=== PATIENT | male | born 1945 | race Caucasian/White ===

== ENCOUNTER 2019-10-16 08:36 | Emergency (ER) | payer OTHER ==
--- OUTSIDE RECORDS SUMMARY | 2019-10-16 08:37 | XMS REPORT ---
:1945 Author Organization eClinicalWorks Care Team Providers Name Role Phone Aceves, Na Provider Role Unavailable Allergies, Adverse Reactions, Alerts Substance Reaction Event Type Iodine Info Not Available Drug Allergy Problems Problem Type Condition Code Onset Dates Condition Status Assessment Screening PSA (prostate specific Z12.5 Active antigen) Assessment Diverticulosis K57.90 Active Assessment Benign hypertrophy of prostate N40.0 Active Assessment History of colon polyps Z86.010 Active Problem Benign hypertrophy of prostate N40.0 Active Assessment Hypertension I10 Active Problem Diverticulosis of colon K57.30 Active Assessment Acute right-sided low back pain M54.5 Active without sciatica Problem Other chronic pain G89.29 Active Problem Lateral epicondylitis, right elbow M77.11 Active Problem Diverticulosis of large intestine K57.30 Active without hemorrhage Problem Benign prostatic hyperplasia with N40.1 Active lower urinary tract symptoms Problem Impingement syndrome of right M75.41 Active shoulder Problem Pneumococcal vaccine administered Z23 Active Problem Diverticulosis K57.90 Active Assessment Adult general medical exam Z00.00 Active Problem Carpal tunnel syndrome of right G56.01 Active wrist Problem Acute pain of right shoulder M25.511 Active Problem Right wrist pain M25.531 Active Problem Right elbow pain M25.521 Active Problem Adult general medical exam Z00.00 Active Problem Hypertension I10 Active Problem 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 Problem Hemorrhoids without complication K64.9 Active Problem GERD (gastroesophageal reflux K21.9 Active disease) Problem Allergic rhinitis, seasonal J30.2 Active Problem History of colon polyps Z86.010 Active Problem Bradycardia R00.1 Active Medications Medication Code Code Instructions Start End Status Dosage System Date Date Metoprolol NDC 01815816139 25 MG Orally Active 1 tablet Tartrate Twice a day with food Tamsulosin HCl NDC 47839857628 0.4 MG Orally Nov 15, Fe 13, Active 1 capsule Once a day 2018 2019 Tamsulosin HCl NDC 16150558087 0.4 MG Orally Active 1 capsule Once a day Metoprolol [facility] 75686130685 25 MG Orally Active 1 tablet Succinate ER Once a day Results Name Result Date Reference Range Unit Abnormality Flag Lipid Panel w/ Chol/HDL Ratio ----T. Chol/HDL Ratio 3.0 61543560 0.0-5.0 ratio ----LDL Cholesterol Calc 128 51332978 0-99 mg/dL H ----Cholesterol, Total 220 87328073 100-199 mg/dL H ----Triglycerides 91 92362758 0-149 mg/dL ----HDL Cholesterol 74 14151469 >39 mg/dL ----VLDL Cholesterol Jayjay 18 31598517 5-40 mg/dL Uric Acid, Serum ----Uric Acid 4.2 42389197 3.7-8.6 mg/dL Summary Purpose eClinicalWorks Submission
--- OUTSIDE RECORDS SUMMARY | 2019-10-16 08:37 | XMS REPORT ---
:1945 Author Organization eClinicalWorks Care Team Providers Name Role Phone [place]ene[place]ie[place] Provider Role Unavailable Allergies No Known Allergies Problems Problem Type Condition Code Onset Dates Condition Status Problem Diverticulosis of colon K57.30 Active Problem Diverticulosis of large intestine K57.30 Active without hemorrhage Problem Other chronic pain G89.29 Active Problem Impingement syndrome of right M75.41 Active shoulder Problem Right elbow pain M25.521 Active Problem Benign prostatic hyperplasia with N40.1 Active lower urinary tract symptoms Problem Carpal tunnel syndrome of right G56.01 Active wrist Problem Lateral epicondylitis, right elbow M77.11 Active Problem Right wrist pain M25.531 Active Problem Acute pain of right shoulder M25.511 Active Problem Hemorrhoids without complication K64.9 Active Problem Adult general medical exam Z00.00 Active Problem Pneumococcal vaccine administered Z23 Active Problem 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
--- OUTSIDE RECORDS SUMMARY | 2019-10-16 08:37 | XMS REPORT ---
:1945 Author Organization eClinicalWorks Care Team Providers Name Role Phone Aceves, Macie Provider Role Unavailable Allergies No Known Allergies Problems Problem Type Condition Code Onset Dates Condition Status Problem Other chronic pain G89.29 Active Problem Lateral epicondylitis, right elbow M77.11 Active Problem Diverticulosis of large intestine K57.30 Active without hemorrhage Problem Benign prostatic hyperplasia with N40.1 Active lower urinary tract symptoms Problem Pneumococcal vaccine administered Z23 Active Problem Impingement syndrome of right M75.41 Active shoulder Problem Diverticulosis K57.90 Active Problem Carpal tunnel syndrome of right [...] Problem Benign hypertrophy of prostate N40.0 Active Problem Bradycardia R00.1 Active Problem Diverticulosis of colon K57.30 Active Medications No Known Medications Results No Known Results Summary Purpose eClinicalWorks Submission
--- OUTSIDE RECORDS SUMMARY | 2019-10-16 08:37 | XMS REPORT ---
:1945 Author Organization eClinicalWorks Care Team Providers Name Role Phone Aceves, Na Provider Role Unavailable Allergies No Known Allergies Problems Problem Type Condition Code Onset Dates Condition Status Problem Diverticulosis of colon K57.30 Active Problem Diverticulosis of large intestine K57.30 Active without hemorrhage Problem Other chronic pain G89.29 Active Problem Impingement syndrome of right M75.41 Active shoulder Problem Right elbow pain M25.521 Active Assessment Hypertension I10 Active Assessment Acute right-sided low back pain M54.5 Active without sciatica Problem Benign prostatic hyperplasia with N40.1 Active [...] Benign hypertrophy of prostate N40.0 Active Medications No Known Medications Results No Known Results Summary Purpose eClinicalWorks Submission
--- OUTSIDE RECORDS SUMMARY | 2019-10-16 08:37 | XMS REPORT ---
:1945 [facility] Address [address] [place] [address] Care Team Providers Name Role Phone Unavailable Unavailable Unavailable Payers Payer Name Policy Type Policy Number Effective Date Expiration Date Problems This patient has no known problems. Allergies, Adverse Reactions, Alerts Allergy Name Allergy Status Severity Reaction(s) Onset Inactive Treating Comments Type Date Date Clinician Penicillins DA Active U 2017-02 00:00:0 0 Sulfa DA Active U 2017-02 (Sulfonamide -08 Antibiotics) 00:00:0 0 iodine DA Active U 2017-02 00:00:0 0 Medications This patient has no known medications. Results Test Description Test Time Test Comments Text Results Atomic Results Result Comments - NM MYOCRD SPECT R/S MULT 2019-10-13 16:25:00 Patient Name: ROSE MARIE IVEY Unit No: [id number] EXAMS: CPT CODE: [id number] NM MYOCRD SPECT R/S MULT [id number] INDICATION: Nonsustained ventricular tachycardia. The patient underwent myocardial perfusion imaging utilizing IV injection of 33 mCi Tc99M Cardiolite at rest and IV injection of 29.8 mCi Tc99M Cardiolite at peak stress. SPECT imaging was obtained at rest and stress. Gated SPECT imaging was obtained at stress. [place] treadmill protocol was utilized for stress. FINDINGS: There is a small mild partially reversible inferior posterior perfusion defect. There is notable some diaphragmatic uptake of technetium in the resting images which may decrease the specificity of this study. CONCLUSIONS: 1. PROBABLE NORMAL TECHNETIUM 99 CARDIOLITE SHOWING AN INFERIOR POSTERIOR ATTENUATION ARTIFACT. HOWEVER A SMALL MILD NONTRANSMURAL SCAR SMALL AMOUNT OF ISCHEMIA CANNOT BE ENTIRELY EXCLUDED. 2. GATED PERFUSION IMAGING SHOWS NORMAL LEFT VENTRICULAR SIZE AND SYSTOLIC FUNCTION WITH NORMAL WALL MOTION. END-DIASTOLIC VOLUME IS 103 ML, END-SYSTOLIC VOLUME IS 44 ML, AND THE EJECTION FRACTION IS 57 %. at 0521 Reported and signed by: Vinh Wick M.D. CC: Vinh Wcik Technologist: Felisha Paniagua, RT(NM); Rox Segura RT(N) Transcrpt Date/Tm/Trnsp: 10/13/2019 (5060) Jannie Orig Print D/T: S: 10/13/2019 ([id number]) [facility] NAME: ROSE MARIE IVEY [address] [place] [address] PHYS: [place] [address] : 1945 AGE: 74 SEX: M LOC: Z.ZNUC PHONE #: [phone] EXAM DATE: 10/03/2019 STATUS: CANDE GALLO FAX #: [phone] RADIOLOGY NO: PAGE 1 Signed Report
--- OUTSIDE RECORDS SUMMARY | 2019-10-16 08:37 | XMS REPORT ---
:1945 Author Organization eClinicalWorks Care Team Providers Name Role Phone Aceves, Na Provider Role Unavailable Allergies, Adverse Reactions, Alerts Substance Reaction Event Type Iodine Info Not Available Drug Allergy Problems Problem Type Condition Code Onset Dates Condition Status Assessment Influenza vaccination administered Z23 Active at current visit Assessment Diverticulosis of large intestine K57.30 Active without hemorrhage Problem Allergic rhinitis, seasonal J30.2 Active Assessment Hypertension I10 Active Problem Benign hypertrophy of prostate N40.0 Active Assessment Benign hypertrophy of prostate N40.0 Active Problem Diverticulosis of colon K57.30 Active Problem Diverticulosis of large intestine K57.30 Active without hemorrhage Problem Other chronic pain G89.29 Active Problem Impingement syndrome of right M75.41 Active shoulder Problem Right elbow pain M25.521 Active Assessment Acute right-sided low back pain M54.5 Active without sciatica Problem Benign prostatic hyperplasia with N40.1 Active lower urinary tract symptoms Assessment Pain of left mastoid H92.02 Active Problem Carpal tunnel syndrome of right [...] Start End Status Dosage System Date Date Tizanidine HCl ND 89735538527 2 MG Orally Aug 02, Aug 17, Active 1 tablet twice a day 2018 2018 as needed for back pain Tamsulosin HCl NDC 67866340751 0.4 MG Orally Active 1 capsule Once a day Metoprolol ND 03339844284 25 MG Orally Active 1 tablet Succinate ER Once a day Results No Known Results Immunizations Vaccine Administration Date FluAD Aug 02, 2019 Summary Purpose eClinicalWorks Submission
[2019-10-16] MEDS ORDERED: MECLIZINE HCL 12.5 MG TAB ONE ×2 (09:20→11:15)
[2019-10-16] MEDS ORDERED: ONDANSETRON 4 MG/2 ML VIAL ONE (09:20)
--- NOTE | 2019-10-16 09:43 | RAD REPORT ---
EXAM DESCRIPTION: CT - Head Brain Wo Cont - 10/16/2019 9:27 am CLINICAL HISTORY: Dizziness COMPARISON: None. TECHNIQUE: Computed axial tomography of the head was obtained. IV contrast was not requested. All CT scans are performed using dose optimization technique as appropriate and may include automated exposure control or mA/KV adjustment according to patient size. FINDINGS: An intracranial bleed is not seen . The ventricles are normal in caliber. No extra-axial fluid collection is noted. Fluid within the sinuses/ mastoids is not seen. IMPRESSION: No acute intracranial abnormality is seen. If patient's symptoms persist MRI of the bra in would be recommended.
[2019-10-16 10:04] LABS: Absolute Lymphocytes (CBC) 0.6 K/uL (0.7-4.9); Basophils % 0.2 % (0-1.3); Hematocrit 43.4 % (39.6-49.0); Lymphocytes % 13.4 % (15.3-44.8); MPV 8.9 fL (7.6-11.3); RBC Red Blood Cell Count 4.85 M/uL (4.33-5.43)
[2019-10-16 10:31] LABS: ALT/SGPT 33 U/L (12-78); AST/SGOT 19 U/L (15-37); Albumin 3.8 g/dL (3.4-5.0); Alkaline Phosphatase 59 U/L (45-117); BUN Blood Urea Nitrogen 14 mg/dL (7-18); Bicarbonate 29 mmol/L (21-32); Bilirubin Direct 0.1 mg/dL (0-0.2); Bilirubin Total 0.6 mg/dL (0.2-1.0); Glucose Level 113 mg/dL (74-106); Magnesium 2.4 mg/dL (1.8-2.4); NT PRO-BNP 57 pg/mL (<125); Potassium 4.1 mmol/L (3.5-5.1); Sodium Level 142 mmol/L (136-145); Troponin (Emerg Dept Use Only) < 0.02 ng/mL (0.0-0.045)
--- NOTE | 2019-10-16 10:58 | RAD REPORT ---
EXAM DESCRIPTION: Tray Single View10/16/2019 9:47 am CLINICAL HISTORY: Dizziness/nausea COMPARISON: 2018 FINDINGS: The lungs appear clear of acute infiltrate. The heart is normal size Pacemaker leads are in place. IMPRESSION: No acute abnormalities displayed
--- NOTE | 2019-10-16 12:34 | ER ---
Nurse's Notes [facility] Name: Ta Roper Age: 74 yrs Sex: Male : 1945 Arrival Date: 10/16/2019 Time: 08:37 Bed 14 Private MD: Diagnosis: Benign paroxysmal vertigo Presentation: 10/16 08:47 Presenting complaint: Patient states: Dizziness since which has gotten ss worse over the past 24 hours. Pt reports he is now becoming nauseous with the episodes. Transition of care: patient was not received from another setting of care. Onset of symptoms was October 12, 2019. Risk Assessment: Do you want to hurt yourself or someone else? Patient reports no desire to harm self or others. Initial Sepsis Screen: Does the patient meet any 2 criteria? No. Patient's initial sepsis screen is negative. Does the patient have a suspected source of infection? No. Patient's initial sepsis screen is negative. Care prior to arrival: None. 08:47 Acuity: GRAHAM 3 ss 08:47 Method Of Arrival: Ambulatory ss Historical: - Allergies: 08:50 Sulfa (Sulfonamide Antibiotics); ss 08:50 PENICILLINS; ss - PMHx: 08:50 Kidney stones; ss - PSHx: 08:50 Hernia repair; Cholecystectomy; pacemaker (bradycardia); ss - Immunization history:: Adult Immunizations up to date. - Social history:: Smoking status: Patient/guardian denies using tobacco. - Ebola Screening: : Patient denies exposure to infectious person Patient denies travel to an Ebola-affected area in the 21 days before illness onset. Screenin:28 Abuse screen: Denies threats or abuse. Nutritional screening: No deficits noted. ae4 Tuberculosis screening: No symptoms or risk factors identified. Fall Risk None identified. Assessment: 09:27 General: Appears in no apparent distress. uncomfortable, Behavior is calm, cooperative. ae4 Pain: Denies pain. Neuro: Level of Consciousness is awake, alert, obeys commands, Oriented to person, place, time, situation. Neuro: Reports dizziness. Cardiovascular: Patient's skin is warm and dry. Respiratory: Airway is patent Respiratory effort is even, unlabored, Respiratory pattern is regular, symmetrical. GI: Abdomen is round non-distended, Abd is soft and non tender X 4 quads. GI: Reports nausea, Patient currently denies vomiting. : No signs and/or symptoms were reported regarding the genitourinary system. EENT: No signs and/or symptoms were reported regarding the EENT system. Derm: Skin is normal. Musculoskeletal: No signs and/or symptoms reported regarding the musculoskeletal system. 09:33 Reassessment: Radiology Technicians at bedside obtaining chest x-ray. ae4 09:43 Reassessment: Radiology at bedside obtaining 2nd x-ray. ae4 11:16 Neuro: Reports dizziness, Patient states the dizziness still remains but has improved. ae4 12:28 Reassessment: Patient appears in no apparent distress at this time. Patient reports a ae4 "slight dizziness". Patient was able to ambulate to the restroom without assistance and a steady gait. Patient states feeling better. Patient states symptoms have improved. Vital Signs: 08:47 BP 122 / 67; Pulse 66; Resp 16; Temp 97.7(TE); Pulse Ox 98% on R/A; Weight 84.37 kg; ss Height 6 ft. 0 in. (182.88 cm); Pain 0/10; 11:10 BP 119 / 89; Pulse 52; Resp 22; Temp 97.9; Pulse Ox 100% on R/A; mh5 12:25 BP 118 / 68; Pulse 62; Resp 18; Temp 97.6(O); Pulse Ox 99% on R/A; mh5 08:47 Body Mass Index 25.23 (84.37 kg, 182.88 cm) ED Course: 08:37 Patient arrived in ED. as 08:39 Jm Yoder NP is PHCP. pm1 08:39 Rei Moreno MD is Attending Physician. pm1 08:47 Arm band placed on right wrist. ss 08:49 Triage completed. ss 09:00 Inserted saline lock: 20 gauge in right antecubital area, using aseptic technique. ae4 Blood collected. 09:11 Onesimo Bolden, ALVARO is Primary Nurse. ae4 09:27 CT completed. Patient tolerated procedure well. Patient moved back from CT. bq 09:28 CT Head Brain wo Cont In Process Unspecified. EDMS 09:28 Bed in low position. Call light in reach. Side rails up X 1. Adult w/ patient. Cardiac ae4 monitor on. Pulse ox on. NIBP on. 09:33 Patient moved back from CT. ae4 09:45 XRAY Chest (1 view) In Process Unspecified. EDMS 13:15 No provider procedures requiring assistance completed. IV discontinued, intact, ae4 bleeding controlled, No redness/swelling at site. Pressure dressing applied. Administered Medications: 09:20 Drug: Meclizine 25 mg Route: PO; ae4 12:30 Follow up: Response: Dizziness decreased, patient reports dizziness still remains. ae4 09:50 Drug: Zofran 4 mg Route: IVP; Site: right antecubital; ae4 10:30 Follow up: Response: Nausea is decreased ae4 11:16 Drug: Meclizine 25 mg Route: PO; ae4 12:29 Follow up: Response: Dizziness decreased. ae4 Outcome: 12:33 Discharge ordered by . pm1 13:14 Patient left the ED. ae4 13:15 Discharged to home ambulatory, with family, with improved , steady gait. ae4 13:15 Condition: stable 13:15 Discharge instructions given to patient, Instructed on discharge instructions, follow up and referral plans. Demonstrated understanding of instructions, Prescriptions given X 1. Signatures: Dispatcher [employer] EDMS Bobbi Cuadra Amelia as Smirch, Shelby, RN RN ss Jm Yoder NP TANKAGE SUPERVISOR pm1 Molly Esc[place] 5 Onesimo Bolden RN RN ae4 Corrections: (The following items were deleted from the chart) 12:24 12:23 BP 93 / 65; Pulse 65bpm; Resp 18bpm; Pulse Ox 98% RA; Temp 97.6F; mh5 5
--- NOTE | 2019-10-16 12:34 | EDPHYS ---
Physician Documentation [facility] Name: Ta Roper Age: 74 yrs Sex: Male : 1945 Arrival Date: 10/16/2019 Time: 08:37 Bed 14 Private MD: YOSSI Physician Rei Moreno HPI: 10/16 09:16 This 74 yrs old Male presents to ER via Ambulatory with complaints of pm1 Vertigo, Nausea. 09:16 The patient presents with sense of spinning, vertigo. Onset: The symptoms/episode pm1 began/occurred 1 week(s) ago. Context: occurred while the patient was changing position and moving head. Modifying factors: The symptoms are alleviated by holding head still, the symptoms are aggravated by movement of head, standing up, changing position. Associated signs and symptoms: Pertinent positives: nausea, Pertinent negatives: chest pain, numbness, shortness of breath, tingling, vomiting. Severity of symptoms: in the emergency department the symptoms are worse Pain is currently a 0 / 10. The patient has not experienced similar symptoms in the past. Historical: - Allergies: 08:50 Sulfa (Sulfonamide Antibiotics); ss 08:50 PENICILLINS; ss - PMHx: 08:50 Kidney stones; ss - PSHx: 08:50 Hernia repair; Cholecystectomy; pacemaker (bradycardia); ss - Immunization history:: Adult Immunizations up to date. - Social history:: Smoking status: Patient/guardian denies using tobacco. - Ebola Screening: : Patient denies exposure to infectious person Patient denies travel to an Ebola-affected area in the 21 days before illness onset. ROS: 09:16 Constitutional: Negative for fever, chills, and weight loss, Eyes: Negative for injury, pm1 pain, redness, and discharge, ENT: Negative for injury, pain, and discharge, Neck: Negative for injury, pain, and swelling, Cardiovascular: Negative for chest pain, palpitations, and edema, Respiratory: Negative for shortness of breath, cough, wheezing, and pleuritic chest pain, Back: Negative for injury and pain, : Negative for injury, bleeding, discharge, and swelling, MS/Extremity: Negative for injury and deformity, Skin: Negative for injury, rash, and discoloration. 09:16 Abdomen/GI: Positive for nausea, Negative for vomiting, diarrhea, constipation. 09:16 Neuro: Positive for dizziness, Negative for headache, numbness, visual changes, weakness. Exam: 09:16 Constitutional: This is a well developed, well nourished patient who is awake, alert, pm1 and in no acute distress. Head/Face: Normocephalic, atraumatic. Eyes: Pupils equal round and reactive to light, extra-ocular motions intact. Lids and lashes normal. Conjunctiva and sclera are non-icteric and not injected. Cornea within normal limits. Periorbital areas with no swelling, redness, or edema. ENT: Nares patent. No nasal discharge, no septal abnormalities noted. Tympanic membranes are normal and external auditory canals are clear. Oropharynx with no redness, swelling, or masses, exudates, or evidence of obstruction, uvula midline. Mucous membranes moist. Neck: Trachea midline, no thyromegaly or masses palpated, and no cervical lymphadenopathy. Supple, full range of motion without nuchal rigidity, or vertebral point tenderness. No Meningismus. Chest/axilla: Normal chest wall appearance and motion. Nontender with no deformity. No lesions are appreciated. Cardiovascular: Regular rate and rhythm with a normal S1 and S2. No gallops, murmurs, or rubs. Normal PMI, no JVD. No pulse deficits. Respiratory: Lungs have equal breath sounds bilaterally, clear to auscultation and percussion. No rales, rhonchi or wheezes noted. No increased work of breathing, no retractions or nasal flaring. Abdomen/GI: Soft, non-tender, with normal bowel sounds. No distension or tympany. No guarding or rebound. No evidence of tenderness throughout. Back: No spinal tenderness. No costovertebral tenderness. Full range of motion. Skin: Warm, dry with normal turgor. Normal color with no rashes, no lesions, and no evidence of cellulitis. MS/ Extremity: Pulses equal, no cyanosis. Neurovascular intact. Full, normal range of motion. 09:16 Neuro: Orientation: is normal, Mentation: is normal, Cranial nerves: CN II- XII are normal as tested, horizontal nystagmus to left side. Motor: is normal, moves all fours, Sensation: is normal, no obvious gross deficits. Vital Signs: 08:47 BP 122 / 67; Pulse 66; Resp 16; Temp 97.7(TE); Pulse Ox 98% on R/A; Weight 84.37 kg; ss Height 6 ft. 0 in. (182.88 cm); Pain 0/10; 11:10 BP 119 / 89; Pulse 52; Resp 22; Temp 97.9; Pulse Ox 100% on R/A; mh5 12:25 BP 118 / 68; Pulse 62; Resp 18; Temp 97.6(O); Pulse Ox 99% on R/A; mh5 08:47 Body Mass Index 25.23 (84.37 kg, 182.88 cm) ss MDM: 08:41 Patient medically screened. ale 11:00 ED course: Patient reports improvement in vertigo with meclizine 25 mg. Will give pm1 another 25 mg to see if it will result in resolution. 12:33 Data reviewed: vital signs. Data interpreted: Pulse oximetry: on room air is 99 %. pm1 Interpretation: normal. Counseling: I had a detailed discussion with the patient and/or guardian regarding: the historical points, exam findings, and any diagnostic results supporting the discharge/admit diagnosis, lab results, radiology results, the need for outpatient follow up, a neurologist, to return to the emergency department if symptoms worsen or persist or if there are any questions or concerns that arise at home. 12:33 ED course: Patient able to walk without assistance and symptoms improved with 50 mg pm1 total of meclizine. therefore will discharge patient home with meclizine and follow up with neurology/PCP. 10/16 09:12 Order name: NT PRO-BNP; Complete Time: 10:35 pm1 10/16 09:12 Order name: Basic Metabolic Panel; Complete Time: 10:35 pm1 10/16 09:12 Order name: CBC with Diff; Complete Time: 10:35 pm1 10/16 09:12 Order name: LFT's; Complete Time: 10:35 pm1 10/16 09:12 Order name: Magnesium; Complete Time: 10:35 pm1 10/16 09:12 Order name: PT-INR; Complete Time: 10:35 pm1 10/16 09:12 Order name: Troponin (emerg Dept Use Only); Complete Time: 10:35 pm1 10/16 09:12 Order name: XRAY Chest (1 view); Complete Time: 10:59 pm1 12/29 09:12 Order name: EKG; Complete Time: 09:13 pm1 10/16 09:12 Order name: Cardiac monitoring; Complete Time: 09:55 pm1 10/16 09:12 Order name: CT Head Brain wo Cont; Complete Time: 10:35 pm1 10/16 09:12 Order name: EKG - Nurse/Tech; Complete Time: 09:55 pm1 10/16 09:12 Order name: IV Saline Lock; Complete Time: 09:56 pm1 10/16 09:12 Order name: Labs collected and sent; Complete Time: 09:56 pm1 10/16 09:12 Order name: O2 Per Protocol; Complete Time: 09:16 pm1 10/16 09:12 Order name: O2 Sat Monitoring; Complete Time: 09:15 pm1 Administered Medications: 09:20 Drug: Meclizine 25 mg Route: PO; ae4 12:30 Follow up: Response: Dizziness decreased, patient reports dizziness still remains. ae4 09:50 Drug: Zofran 4 mg Route: IVP; Site: right antecubital; ae4 10:30 Follow up: Response: Nausea is decreased ae4 11:16 Drug: Meclizine 25 mg Route: PO; ae4 12:29 Follow up: Response: Dizziness decreased. ae4 Disposition: 10/16/19 12:33 Discharged to Home. Impression: Benign paroxysmal vertigo. - Condition is Stable. - Discharge Instructions: Benign Positional Vertigo. - Prescriptions for Meclizine 25 mg Oral Tablet - take 1 tablet by ORAL route every 8 hours As needed; 30 tablet. Zofran ODT 4 mg Oral tablet,disintegrating - place 1 tablet by TRANSLINGUAL route every 8 hours As needed; 20 tablet. - Medication Reconciliation Form, Thank You Letter, Antibiotic Education, Prescription Opioid Use form. - Follow up: Emergency Department; When: As needed; Reason: Worsening of condition. Follow up: Private Physician; When: 2 - 3 days; Reason: Recheck today's complaints, Continuance of care, Re-evaluation by your physician. - Problem is new. - Symptoms have improved. Addendum: 10/24/2019 08:35 Co-signature as Attending Physician, Rei Moreno MD I agree with the assessment and c juarez plan of care. Signatures: Dispatcher [employer] Rei Slaughter MD MD cha Smirch, Shelby, RN RN Jm Forrester NP NUMERICAL CONTROL OPERATOR pm1 Onesimo Bolden, RN RN ae4 Corrections: (The following items were deleted from the chart) 10/16 13:14 12:33 10/16/2019 12:33 Discharged to Home. Impression: Benign paroxysmal vertigo. ae4 Condition is Stable. Forms are Medication Reconciliation Form, Thank You Letter, Antibiotic Education, Prescription Opioid Use. Follow up: Emergency Department; When: As needed; Reason: Worsening of condition. Follow up: Private Physician; When: 2 - 3 days; Reason: Recheck today's complaints, Continuance of care, Re-evaluation by your physician. Problem is new. Symptoms have improved. pm1
[2019-10-16 13:22] VITALS: BP 118/68; TEMP 97.6; O2SAT 99
--- NOTE | 2019-10-17 10:20 | EKG ---
Test Date: 2019-10-16 Test Time: 09:37:30 Corporate Lawyer: TRISTIAN MEASUREMENT RESULTS: Intervals: Rate: 62 ID: [id number] QRSD: 96 QT: 420 QTc: 426 Wray: P: ID: [id number] QRS: 1 T: 20 INTERPRETIVE STATEMENTS: Atrial-paced rhythm with prolonged AV conduction Incomplete right bundle branch block Abnormal ECG Compared to ECG 08/20/2016 13:05:39 Incomplete right bundle-branch block now present Electronically Signed On 10-17-19 10:18:49 STEM TEACHER by Yuan Moore
== END 2019-10-16 13:14 | disposition home or self-care (01) ==
LOC: ER 08:36
DX: H81.10 Benign paroxysmal vertigo, unspecified ear (principal); Z95.0 Presence of cardiac pacemaker; Z88.0 Allergy status to penicillin; Z88.2 Allergy status to sulfonamides; Z87.442 Personal history of urinary calculi
CPT/HCPCS: 93005; 85025; 80048; 36415; 83735; 85610; 80076; 84484; 83880; 70450; 71045; 96374; 99285; J2405; J8597

== ENCOUNTER 2020-01-21 06:30 | Emergency (ER) | payer OTHER ==
--- OUTSIDE RECORDS SUMMARY | 2020-01-21 06:32 | XMS REPORT ---
[...] Status Dosage System Date Date Metoprolol NDC 64977894122 25 MG Orally Active 1 tablet Tartrate Twice a day with food Tamsulosin HCl NDC 03504722656 0.4 MG Orally Nov 15, Fe 13, Active 1 capsule Once a day 2018 2019 Tamsulosin HCl NDC 78757261963 0.4 MG Orally Active 1 capsule Once a day Metoprolol [facility] 91951145910 25 MG Orally Active 1 tablet Succinate ER Once a day Results Name Result Date Reference Range Unit Abnormality Flag Lipid Panel w/ Chol/HDL Ratio ----T. Chol/HDL Ratio 3.0 [id number] 0.0-5.0 ratio ----LDL Cholesterol Calc 128 14309367 0-99 mg/dL H ----Cholesterol, Total 220 42615227 100-199 mg/dL H ----Triglycerides 91 02653289 0-149 mg/dL ----HDL Cholesterol 74 30258501 >39 mg/dL ----VLDL Cholesterol Jayjay 18 28091129 5-40 mg/dL Uric Acid, Serum ----Uric Acid 4.2 63160751 3.7-8.6 mg/dL Summary Purpose eClinicalWorks Submission
--- OUTSIDE RECORDS SUMMARY | 2020-01-21 06:32 | XMS REPORT ---
[...] Dosage System Date Date Tizanidine HCl ND 36645318125 2 MG Orally Aug 02, Aug 17, Active 1 tablet twice a day 2018 2018 as needed for back pain Tamsulosin HCl NDC 04000946265 0.4 MG Orally Active 1 capsule Once a day Metoprolol ND 76704293032 25 MG Orally Active 1 tablet Succinate ER Once a day Results No Known Results Immunizations Vaccine Administration Date FluAD Aug 02, 2019 Summary Purpose eClinicalWorks Submission
--- OUTSIDE RECORDS SUMMARY | 2020-01-21 06:32 | XMS REPORT ---
:1945 Author Organization eClinicalWorks Care Team Providers Name Role Phone [place]ie[place] Provider Role Unavailable Allergies No Known Allergies [...] Status Dosage System Date Date Tamsulosin HCl [facility] 65096923102 0.4 MG Orally Sep 02, Dec 01, Active 1 capsule Once a day 2018 2019 Results No Known Results Summary Purpose eClinicalWorks Submission
--- OUTSIDE RECORDS SUMMARY | 2020-01-21 06:32 | XMS REPORT ---
:1945 [facility] Address [address] [place] [address] Care Team Providers Name Role Phone Unavailable [...] Patient Name: ROSE MARIE IVEY Unit No: [id number] EXAMS: CPT CODE: [id number] NM MYOCRD SPECT R/S MULT [id number] INDICATION: Nonsustained ventricular tachycardia. The patient underwent [...] THE EJECTION FRACTION IS 57 %. at 6150 Reported and signed by: Vinh Wikc M.D. CC: Vinh Wick Technologist: Felisha Paniagua, RT(NM); Rox Segura RT(N) Transcrpt Date/Tm/Trnsp: 10/13/2019 (5557) Jannie Orig Print D/T: S: 10/13/2019 ([id number]) [facility] NAME: ROSE MARIE IVEY [address] [place] [address] PHYS: [place] [address] : 1945 AGE: 74 SEX: M LOC: Z.ZNUC PHONE #: [phone] EXAM DATE: 10/03/2019 STATUS: CANDE GALLO FAX #: [phone] RADIOLOGY NO: PAGE 1 Signed Report
--- OUTSIDE RECORDS SUMMARY | 2020-01-21 06:32 | XMS REPORT ---
:1945 Author Organization eClinicalWorks Care Team Providers Name Role Phone Aceves, Na Provider Role Unavailable Allergies, Adverse Reactions, Alerts Substance Reaction Event Type Iodine Info Not Available Drug Allergy Problems Problem Type Condition Code Onset Dates Condition Status Assessment Generalized abdominal pain R10.84 Active Assessment GERD with esophagitis K21.0 Active Problem Diverticulosis of colon K57.30 Active Assessment Cervicalgia M54.2 Active Problem Other chronic pain G89.29 Active Assessment Vertigo R42 Active Problem Diverticulosis of large intestine K57.30 Active without hemorrhage Problem Carpal tunnel syndrome of right G56.01 Active wrist Problem Lateral epicondylitis, right elbow M77.11 Active Problem Diverticulosis K57.90 Active Problem Benign prostatic hyperplasia with N40.1 Active lower urinary tract symptoms Problem 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 Problem Pneumococcal vaccine administered Z23 Active Problem GERD with esophagitis K21.0 Active Problem Right wrist pain M25.531 Active Problem Acute pain of right shoulder M25.511 Active Problem Impingement syndrome of right M75.41 Active shoulder Problem Right elbow pain M25.521 Active Problem Hypertension I10 Active Problem History of colon polyps Z86.010 Active Problem Hemorrhoids without complication K64.9 Active Problem Adult general medical exam Z00.00 Active Problem Allergic rhinitis, seasonal J30.2 Active Problem Benign hypertrophy of prostate N40.0 Active Problem Bradycardia R00.1 Active Problem GERD (gastroesophageal reflux K21.9 Active disease) Medications Medication Code Code Instructions Start End Status Dosage System Date Date Metoprolol ND 50089206331 25 MG Orally Active 1 tablet Tartrate Twice a day with food Tamsulosin HCl ND 25964584929 0.4 MG Orally Sep 02, Dec 01, Active 1 capsule Once a day 2018 2019 Metoprolol NDC 25775648871 25 MG Orally Active 1 tablet Succinate ER Once a day Omeprazole ND 13829442684 40 MG Orally Nov 01, Active 1 capsule Once a day 2019 Tamsulosin HCl ND 20970282343 0.4 MG Orally Active 1 capsule Once a day Tizanidine HCl [facility] 40272144036 2 MG Nov 01, Dec 01, Active 1 2019 EVERY 12 HOURS PRN PAIN MUSCLE SPASM Results No Known Results Summary Purpose eClinicalWorks Submission
--- OUTSIDE RECORDS SUMMARY | 2020-01-21 06:33 | XMS REPORT ---
:1945 [facility] Team Providers Name Role Phone Susannah Oh Provider Role Unavailable Allergies, Adverse Reactions, Alerts Substance Reaction Event Type Iodine Info Not Available Drug Allergy Problems Problem Type Condition Code Onset Dates Condition Status Assessment History of kidney stones Z87.442 Active Assessment Benign prostatic hyperplasia with N40.1 Active lower urinary tract symptoms Assessment Nocturia R35.1 Active Problem Diverticulosis of colon K57.30 Active Assessment Frequent urination R35.0 Active Problem Other chronic pain G89.29 Active Assessment Kidney pain N23 Active Problem Diverticulosis of large intestine K57.30 [...] Start End Status Dosage System Date Date Omeprazole ND 18952419090 40 MG Orally Nov 01, Active 1 capsule Once a day 2019 Tizanidine HCl ND 48025116193 2 MG Nov 01, Dec 01, Active 1 TAB 2019 2020 EVERY 12 HOURS PRN PAIN MUSCLE SPASM Tamsulosin HCl ND 26590139113 0.4 MG Orally Sep 02Dec 01, Active 1 capsule Once a day 2018 2019 Metoprolol ND 20536471138 25 MG Orally Active 1 tablet Tartrate Twice a day with food Tamsulosin HCl [facility] 83686199201 0.4 MG Orally Active 1 capsule Once a day Metoprolol [facility] 54474202657 25 MG Orally Active 1 tablet Succinate ER Once a day Results No Known Results Summary Purpose eClinicalWorks Submission
[2020-01-21] MEDS ORDERED: ONDANSETRON 4 MG/2 ML VIAL ONE ×2 (06:57→08:03)
[2020-01-21] MEDS ORDERED: KETOROLAC 30 MG/ML INJ ONE (06:57)
[2020-01-21] MEDS ORDERED: MORPHINE 4 MG/ML SYR ONE (06:57)
[2020-01-21] MEDS ORDERED: NA CHLORIDE 0.9% 1,000 ML ONE ×2 (06:57→08:03)
[2020-01-21 07:04] LABS: Absolute Lymphocytes (CBC) 1.8 K/uL (0.7-4.9); Basophils % 0.2 % (0-1.3); Hematocrit 43.9 % (39.6-49.0); Lymphocytes % 39.2 % (15.3-44.8); MPV 8.6 fL (7.6-11.3); RBC Red Blood Cell Count 4.88 M/uL (4.33-5.43)
[2020-01-21] MEDS ORDERED: CEFTRIAXONE/SWI 1gm 1 GM/10 ML SYR ONE (07:24)
[2020-01-21 07:27] LABS: Albumin 3.8 g/dL (3.4-5.0); Bilirubin Direct 0.1 mg/dL (0-0.2); Bilirubin Total 0.6 mg/dL (0.2-1.0); Potassium 3.6 mmol/L (3.5-5.1)
--- NOTE | 2020-01-21 07:44 | RAD REPORT ---
EXAM DESCRIPTION: CT - Stone Protocol - 01/21/2020 7:28 am CLINICAL HISTORY: Abdominal pain. COMPARISON: 2015 TECHNIQUE: Computed axial tomography of the abdomen pelvis was obtained without oral or IV contrast. Lack of IV and oral contrast limits evaluation of solid organs, bowel, and vessels. Coronal reformat emma images were obtained and reviewed. All CT scans are performed using dose optimization technique as appropriate and may include automated exposure control or mA/KV adjustment according to patient size. FINDINGS: A renal calculus is not seen. Mild right hydronephrosis. 2 millimeter calculus right UVJ. Small left renal cysts. Cholecystectomy The liver, spleen, pancreas and adrenals appear grossly normal There is no evidence of diverticulitis. The appendix appears normal. Small inguinal hernias contain f at IMPRESSION: A 2 millimeter calculus right UVJ resulting in mild right hydronephrosis
--- NOTE | 2020-01-21 07:49 | ER ---
Nurse's Notes [facility] Name: Ta Roper Age: 74 yrs Sex: Male : 1945 Arrival Date: 01/21/2020 Time: 06:31 Bed 20 Private MD: Diagnosis: Hydronephrosis with renal and ureteral calculous obstruction-2 mm UVJ Presentation: 01/20 06:33 Chief complaint: Patient states: I am having right sided kidney pain that radiates to jb4 the right of my stomach. It feels like a kidney stone. 06:33 Coronavirus screen: Patient denies fever greater than 100.4F, cough, shortness of jb4 breath, or difficulty breathing. Proceed with normal triage process. Ebola Screen: No symptoms or risks identified at this time. Initial Sepsis Screen: Does the patient meet any 2 criteria? No. Patient's initial sepsis screen is negative. Does the patient have a suspected source of infection? No. Patient's initial sepsis screen is negative. Risk Assessment: Do you want to hurt yourself or someone else? Patient reports no desire to harm self or others. Transition of care: patient was not received from another setting of care. 06:33 Method Of Arrival: Ambulatory jb4 06:33 Acuity: GRAHAM 3 jb4 Historical: - Allergies: 06:33 PENICILLINS; jb4 06:33 Sulfa (Sulfonamide Antibiotics); jb4 - Home Meds: 06:33 metoprolol succinate 25 mg oral Tb24 1 tab once daily [Active]; jb4 - PMHx: 06:33 Kidney stones; jb4 - PSHx: 06:33 Cholecystectomy; jb4 - Immunization history:: Adult Immunizations up to date. - Social history:: Smoking status: Patient denies any tobacco usage or history of. Patient uses alcohol, occasionally. Patient/guardian denies using street drugs. - Family history:: not pertinent. Screenin:33 Abuse screen: Denies threats or abuse. Nutritional screening: No deficits noted. jb4 Tuberculosis screening: No symptoms or risk factors identified. Fall Risk None identified. Assessment: 06:33 General: Appears in no apparent distress. uncomfortable, Behavior is calm, cooperative, jb4 appropriate for age. Pain: Complains of pain in right low back Pain radiates to right lower quadrant and groin Pain currently is 9 out of 10 on a pain scale. Quality of pain is described as shooting, Is continuous. Neuro: Level of Consciousness is awake, alert, obeys commands, Oriented to person, place, time, situation. Cardiovascular: Patient's skin is warm and dry. Respiratory: Airway is patent Respiratory effort is even, unlabored, Respiratory pattern is regular, symmetrical. GI: No signs and/or symptoms were reported involving the gastrointestinal system. : No signs and/or symptoms were reported regarding the genitourinary system. EENT: No signs and/or symptoms were reported regarding the EENT system. Derm: Skin is intact, Skin is pink, warm \T\ dry. Musculoskeletal: Circulation, motion, and sensation intact. Range of motion: intact in all extremities. 07:22 Reassessment: Patient appears in no apparent distress at this time. pt wheeled to [place] em via stretcher. 07:45 Reassessment: Patient appears in no apparent distress at this time. reports pain is em 4/10, also reports nausea, Dr. Moreno notified. 08:13 Reassessment: pt will be discharged after completion of NS bolus. em 08:40 Reassessment: reports pain shot up to 8/10, currently rates pain 4/10, pt states he is em shaking because he is in pain, repeat 0.5 mg Dilaudid given. 09:04 Reassessment: Patient appears in no apparent distress at this time. Patient and/or em family updated on plan of care and expected duration. Pain level reassessed. Patient is alert, oriented x 3, equal unlabored respirations, skin warm/dry/pink. rates pain 3/10, has notified grandson to come get him after his fluids are finished Patient states feeling better. Patient states symptoms have improved. 10:25 Reassessment: pt vomited as being wheeled out of room, XAVIER Angulo notified, verbal order iw for Zofran 4 mg PO to be given now. 10:48 Reassessment: pt still fells nauseous but would prefer to Go home and manage symptoms iw at home, pt wheeled out to vehicle, grandson and pt given instructions to return pt to ER if pt cannot hold down his medications or if pt continues to vomit at home. Vital Signs: 06:33 BP 116 / 87; Pulse 64; Resp 18; Temp 97.8(O); Pulse Ox 99% on R/A; Weight 85.28 kg (R); jb4 Height 6 ft. 0 in. (182.88 cm) (R); Pain 9/10; 07:15 BP 154 / 81; Pulse 62; Resp 18; Pulse Ox 97% on R/A; Pain 2/10; em 08:00 BP 148 / 84; Pulse 59; Resp 22; Pulse Ox 97% on R/A; Pain 4/10; em 08:40 BP 146 / 82; Pulse 59; Resp 20; Pulse Ox 100% on R/A; Pain 4/10; em 09:03 BP 139 / 73; Pulse 57; Resp 18; Pulse Ox 99% on R/A; Pain 3/10; em 06:33 Body Mass Index 25.50 (85.28 kg, 182.88 cm) jb4 ED Course: 06:31 Patient arrived in ED. ds1 06:32 Rei Moreno MD is Attending Physician. ale 06:33 Arm band placed on right wrist. jb4 06:33 Patient has correct armband on for positive identification. Placed in gown. Bed in low jb4 position. Call light in reach. Side rails up X 1. Pulse ox on. NIBP on. 06:43 Triage completed. jb4 07:08 Jerardo Ling, RN is Primary Nurse. em 07:28 CT completed. Patient tolerated procedure well. Patient moved back from CT. bq 07:28 CT Stone Protocol In Process Unspecified. EDMS 07:48 Samir Lilly MD is Referral Physician. ale 07:50 No provider procedures requiring assistance completed. em 10:20 IV discontinued, intact, bleeding controlled, No redness/swelling at site. Pressure iw dressing applied. Administered Medications: 06:55 Drug: NS 0.9% 1000 ml Route: IV; Rate: 1 bolus; Site: right antecubital; jb4 08:26 Follow up: IV Status: Completed infusion; IV Intake: 1000ml em 06:55 Drug: TORadol 30 mg Route: IVP; Site: right antecubital; jb4 07:48 Follow up: Response: No adverse reaction; Marked relief of symptoms; Pain is decreased em 06:56 Drug: Zofran (Ondansetron) 4 mg Route: IVP; Site: right antecubital; jb4 07:49 Follow up: Response: No adverse reaction; Marked relief of symptoms; Nausea is decreasedem 06:58 Drug: morphine 4 mg {Note: Rass score 0.} Route: IVP; Site: right antecubital; jb4 07:48 Follow up: Response: No adverse reaction; Marked relief of symptoms; Pain is decreased; em RASS: Alert and Calm (0) 08:00 Drug: NS 0.9% 1000 ml Route: IV; Rate: 1 bolus; Site: right antecubital; em 08:00 Drug: Zofran (Ondansetron) 4 mg Route: IVP; Site: right antecubital; em 08:25 Follow up: Response: No adverse reaction; Marked relief of symptoms; Nausea is decreasedem 08:02 Drug: Dilaudid 0.5 mg Route: IVP; Site: right antecubital; em 08:27 Follow up: Response: No adverse reaction; Marked relief of symptoms; Pain is decreased; em RASS: Alert and Calm (0) 08:07 Drug: Rocephin 1 grams Route: IV; Rate: per protocol; Site: right antecubital; em 08:25 Follow up: Response: No adverse reaction; IV Status: Completed infusion; IV Intake: 10mlem 08:09 Not Given (took [employer] from his own prescription): Flomax 0.4 mg PO once em 08:42 Drug: Dilaudid 0.5 mg Route: IVP; Site: right antecubital; em Intake: 08:25 IV: 10ml; Total: 10ml. em 08:26 IV: 1000ml; Total: 1010ml. em Outcome: 07:48 Discharge ordered by . ale 10:52 Discharged to home via wheelchair, with family. iw 10:52 Condition: good 10:52 Discharge instructions given to patient, family, Instructed on discharge instructions, follow up and referral plans. medication usage, Demonstrated understanding of instructions, follow-up care, medications, Prescriptions given X 4. 10:53 Patient left the ED. iw Signatures: Dispatcher [employer] Rei Slaughter MD MD cha Quilty, Betty bq Munoz, Edgar, RN RN em [place] ds1 Maricruz Eddy RN RN iw Dudley Lassiter RN RN jb4
--- NOTE | 2020-01-21 07:50 | EDPHYS ---
Physician Documentation [facility] Name: Ta Roper Age: 74 yrs Sex: Male : 1945 Arrival Date: 01/21/2020 Time: 06:31 Bed 20 Private MD: Rei Thomas HPI: 01/20 06:42 This 74 yrs old Male presents to ER via Unassigned with complaints of Kidney ale Pain. 06:42 The patient presents with abdominal pain right lower quadrant. Onset: The ale symptoms/episode began/occurred just prior to arrival, this morning. The patient complains of pain in the right mid back and right low back. The pain radiates to the right mid back and right low back. Onset: The symptoms/episode began/occurred just prior to arrival, this morning. Modifying factors: The symptoms are alleviated by nothing. the symptoms are aggravated by nothing. Associated signs and symptoms: The patient has no apparent associated signs or symptoms. The symptoms do not radiate. Modifying factors: The symptoms are alleviated by nothing, the symptoms are aggravated by nothing. Historical: - Allergies: 06:33 PENICILLINS; jb4 06:33 Sulfa (Sulfonamide Antibiotics); jb4 - Home Meds: 06:33 metoprolol succinate 25 mg oral Tb24 1 tab once daily [Active]; jb4 - PMHx: 06:33 Kidney stones; jb4 - PSHx: 06:33 Cholecystectomy; jb4 - Immunization history:: Adult Immunizations up to date. - Social history:: Smoking status: Patient denies any tobacco usage or history of. Patient uses alcohol, occasionally. Patient/guardian denies using street drugs. - Family history:: not pertinent. ROS: 06:42 Constitutional: Negative for fever, chills, and weight loss, Eyes: Negative for injury, ale pain, redness, and discharge, ENT: Negative for injury, pain, and discharge, Neck: Negative for injury, pain, and swelling, Cardiovascular: Negative for chest pain, palpitations, and edema, Respiratory: Negative for shortness of breath, cough, wheezing, and pleuritic chest pain, : Negative for injury, bleeding, discharge, and swelling, MS/Extremity: Negative for injury and deformity, Skin: Negative for injury, rash, and discoloration, Neuro: Negative for headache, weakness, numbness, tingling, and seizure, Psych: Negative for depression, anxiety, suicide ideation, homicidal ideation, and hallucinations, Allergy/Immunology: Negative for hives, rash, and allergies, Endocrine: Negative for neck swelling, polydipsia, polyuria, polyphagia, and marked weight changes, Hematologic/Lymphatic: Negative for swollen nodes, abnormal bleeding, and unusual bruising. 06:42 Abdomen/GI: Positive for abdominal pain, of the anterior aspect of right lateral abdomen, posterior aspect of right lateral abdomen, right upper quadrant and right lower quadrant. 06:42 Back: Positive for flank pain, on the right. Exam: 06:42 Constitutional: This is a well developed, well nourished patient who is awake, alert, ale and in no acute distress. Head/Face: Normocephalic, atraumatic. Eyes: Pupils equal round and reactive to light, extra-ocular motions intact. Lids and lashes normal. Conjunctiva and sclera are non-icteric and not injected. Cornea within normal limits. Periorbital areas with no swelling, redness, or edema. ENT: Nares patent. No nasal discharge, no septal abnormalities noted. Tympanic membranes are normal and external auditory canals are clear. Oropharynx with no redness, swelling, or masses, exudates, or evidence of obstruction, uvula midline. Mucous membranes moist. Neck: Trachea midline, no thyromegaly or masses palpated, and no cervical lymphadenopathy. Supple, full range of motion without nuchal rigidity, or vertebral point tenderness. No Meningismus. Chest/axilla: Normal chest wall appearance and motion. Nontender with no deformity. No lesions are appreciated. Cardiovascular: Regular rate and rhythm with a normal S1 and S2. No gallops, murmurs, or rubs. Normal PMI, no JVD. No pulse deficits. Respiratory: Lungs have equal breath sounds bilaterally, clear to auscultation and percussion. No rales, rhonchi or wheezes noted. No increased work of breathing, no retractions or nasal flaring. Back: No spinal tenderness. No costovertebral tenderness. Full range of motion. Male : Normal genitalia with no discharge or lesions. Skin: Warm, dry with normal turgor. Normal color with no rashes, no lesions, and no evidence of cellulitis. MS/ Extremity: Pulses equal, no cyanosis. Neurovascular intact. Full, normal range of motion. Neuro: Awake and alert, GCS 15, oriented to person, place, time, and situation. Cranial nerves II-XII grossly intact. Motor strength 5/5 in all extremities. Sensory grossly intact. Cerebellar exam normal. Normal gait. Psych: Awake, alert, with orientation to person, place and time. Behavior, mood, and affect are within normal limits. 06:42 Abdomen/GI: Inspection: abdomen appears normal, Bowel sounds: normal, Palpation: mild abdominal tenderness, in the right upper quadrant and right lower quadrant, Liver: no appreciated palpable abnormalities, Hernia: not appreciated. Vital Signs: 06:33 BP 116 / 87; Pulse 64; Resp 18; Temp 97.8(O); Pulse Ox 99% on R/A; Weight 85.28 kg (R); jb4 Height 6 ft. 0 in. (182.88 cm) (R); Pain 9/10; 07:15 BP 154 / 81; Pulse 62; Resp 18; Pulse Ox 97% on R/A; Pain 2/10; em 08:00 BP 148 / 84; Pulse 59; Resp 22; Pulse Ox 97% on R/A; Pain 4/10; em 08:40 BP 146 / 82; Pulse 59; Resp 20; Pulse Ox 100% on R/A; Pain 4/10; em 09:03 BP 139 / 73; Pulse 57; Resp 18; Pulse Ox 99% on R/A; Pain 3/10; em 06:33 Body Mass Index 25.50 (85.28 kg, 182.88 cm) jb4 MDM: 06:35 Patient medically screened[address] [facility] 06:42 Data reviewed: vital signs, nurses notes, lab test result(s), radiologic studies, CT ale scan. 01/20 06:40 Order name: Basic Metabolic Panel; Complete Time: 07:[address] [facility] 01/20 06:40 Order name: CBC with Diff; Complete Time: 07:[address] [facility] 01/20 06:40 Order name: Creatinine for Radiology; Complete Time: 07:[address] [facility] 01/20 06:40 Order name: Hepatic Function; Complete Time: 07:[address] [facility] 01/20 06:40 Order name: Lipase; Complete Time: 07:[address] [facility] 01/20 06:40 Order name: Urine Culture [facility] 01/20 06:40 Order name: CT Stone Protocol; Complete Time: 07:[address] [facility] 01/20 08:00 Order name: Urine Dipstick--Ancillary (enter results) 01/20 06:40 Order name: IV Saline Lock; Complete Time: 07:[address] [facility] 01/20 06:40 Order name: Labs collected and sent; Complete Time: 07:[address] [facility] 01/20 06:40 Order name: Urine Dipstick-Ancillary (obtain specimen); Complete Time: 07:[address] [facility] Administered Medications: 06:55 Drug: NS 0.9% 1000 ml Route: IV; Rate: 1 bolus; Site: right antecubital; jb4 08:26 Follow up: IV Status: Completed infusion; IV Intake: 1000ml em 06:55 Drug: TORadol 30 mg Route: IVP; Site: right antecubital; 4 07:48 Follow up: Response: No adverse reaction; Marked relief of symptoms; Pain is decreased em 06:56 Drug: Zofran (Ondansetron) 4 mg Route: IVP; Site: right antecubital; 4 07:49 Follow up: Response: No adverse reaction; Marked relief of symptoms; Nausea is decreasedem 06:58 Drug: morphine 4 mg {Note: Rass score 0.} Route: IVP; Site: right antecubital; jb4 07:48 Follow up: Response: No adverse reaction; Marked relief of symptoms; Pain is decreased; em RASS: Alert and Calm (0) 08:00 Drug: NS 0.9% 1000 ml Route: IV; Rate: 1 bolus; Site: right antecubital; em 08:00 Drug: Zofran (Ondansetron) 4 mg Route: IVP; Site: right antecubital; em 08:25 Follow up: Response: No adverse reaction; Marked relief of symptoms; Nausea is decreasedem 08:02 Drug: Dilaudid 0.5 mg Route: IVP; Site: right antecubital; em 08:27 Follow up: Response: No adverse reaction; Marked relief of symptoms; Pain is decreased; em RASS: Alert and Calm (0) 08:07 Drug: Rocephin 1 grams Route: IV; Rate: per protocol; Site: right antecubital; em 08:25 Follow up: Response: No adverse reaction; IV Status: Completed infusion; IV Intake: 10mlem 08:09 Not Given (took [employer] from his own prescription): Flomax 0.4 mg PO once em 08:42 Drug: Dilaudid 0.5 mg Route: IVP; Site: right antecubital; em Disposition: 01/21/20 07:48 Discharged to Home. Impression: Hydronephrosis with renal and ureteral calculous obstruction - 2 mm UVJ. - Condition is Stable. - Discharge Instructions: Kidney Stones, Kidney Stones, [id number], Hydronephrosis, Dietary Guidelines to Help Prevent Kidney Stones. - Prescriptions for Tylenol- Codeine #3 300-30 mg Oral Tablet - take 2 tablets by ORAL route every 6 hours As needed; 24 tablet. Zofran 4 mg Oral Tablet - take 1 tablet by ORAL route every 12 hours As needed; 20 tablet. Flomax 0.4 mg Oral Capsule, Sust. Release 24 hr - take 1 capsule by ORAL route once daily 1/2 hour following the same meal each day; 30 capsule. Cipro 500 mg Oral Tablet - take 1 tablet by ORAL route every 12 hours for 7 days; 14 tablet. - Medication Reconciliation Form, Thank You Letter, Antibiotic Education, Prescription Opioid Use form. - Follow up: Private Physician; When: 2 - 3 days; Reason: Recheck today's complaints, Continuance of care, Re-evaluation by your physician. Follow up: Samir Lilly; When: 2 - 3 days; Reason: Recheck today's complaints, Re-evaluation by your physician. - Problem is new. - Symptoms have improved. Signatures: Dispatcher [employer] Rei Slaughter MD MD cha Munoz, Edgar, RN RN Maricruz Eddy RN RN Dudley Lassiter RN RN jb4 Corrections: (The following items were deleted from the chart) 10:53 07:48 01/21/2020 07:48 Discharged to Home. Impression: Hydronephrosis with renal and iw ureteral calculous obstruction - 2 mm UVJ. Condition is Stable. Discharge Instructions: Kidney Stones, Kidney Stones, [id number], Hydronephrosis, Dietary Guidelines to Help Prevent Kidney Stones. Prescriptions for Tylenol-Codeine #3 300-30 mg Oral Tablet - take 2 tablets by ORAL route every 6 hours As needed; 24 tablet, Zofran 4 mg Oral Tablet - take 1 tablet by ORAL route every 12 hours As needed; 20 tablet, Flomax 0.4 mg Oral Capsule, Sust. Release 24 hr - take 1 capsule by ORAL route once daily 1/2 hour following the same meal each day; 30 capsule, Cipro 500 mg Oral Tablet - take 1 tablet by ORAL route every 12 hours for 7 days; 14 tablet. and Forms are Medication Reconciliation Form, Thank You Letter, Antibiotic Education, Prescription Opioid Use. Follow up: Private Physician; When: 2 - 3 days; Reason: Recheck today's complaints, Continuance of care, Re-evaluation by your physician. Follow up: Samir Lilly; When: 2 - 3 days; Reason: Recheck today's complaints, Re-evaluation by your physician. Problem is new. Symptoms have improved. ale
[2020-01-21] MEDS ORDERED: TAMSULOSIN 0.4 MG SR CAP ONE (07:57)
[2020-01-21] MEDS ORDERED: HYDROMORPHONE HCL 0.5 MG/0.5 ML INJ ONE ×2 (08:03→08:24)
[2020-01-21 09:37] LABS: Urine Blood NEGATIVE (NEG); Urine Glucose NEGATIVE (NEG); Urine Protein NEGATIVE (NEG)
[2020-01-21] MEDS ORDERED: ONDANSETRON 4 MG (ODT) TAB ONE (10:24)
[2020-01-21 10:58] VITALS: TEMP 97.8
[2020-01-21 11:04] VITALS: BP 139/73; O2SAT 99
== END 2020-01-21 10:53 | disposition home or self-care (01) ==
LOC: ER 06:30
DX: N13.2 Hydronephrosis with renal and ureteral calculous obstruction (principal); Z87.442 Personal history of urinary calculi; Z88.0 Allergy status to penicillin; Z88.2 Allergy status to sulfonamides
CPT/HCPCS: 96365; 96361; 87088; 85025; 87086; 80048; 36415; 80076; 81003; 83690; 76377; 74176; 96375; 99284; J1170 ×2; J0696; J7030 ×2; J2405 ×2

== ENCOUNTER → 2023-10-30 | Emergency (ER) | payer OTHER ==
--- OUTSIDE RECORDS SUMMARY | 2023-10-30 10:01 | XMS REPORT | Continuity of Care Document ---
Author Name Unknown Address [address] [facility] [address] [place] [address] [facility] thconnect Address [address] [facility] [address] [place] [address] Care Team Providers Care [employer] Project Manager Name Role Phone David Cam Attending Clinician Unavailable Enedina Burnett Attending Clinician Unavailable Macie Aceves Attending Clinician Unavailable Vinh Wick Attending Clinician Unavaildianna e Vinh Wick Admitting Clinician Unavailabl e Payers Payer Name Policy Type Policy Number Effective Date Expirati on Date Source [facility] Dual Complete Choice ([facility] PPO D-SNP) [id number] 2021 00:00:00 [facility] Problems Condition Name Condition Details Condition Category Status Onset Date Resolution Date Last Treatment Date Treating Clinician Comments Source [id number] History of nephrolith iasis Problem [facility] [id number] Right lower quadrant pain Problem [facility] [id number] Crystallur ia Problem [facility] [id number] Presence of cardiac pacemaker Problem [facility] [id number] Mixed hyperlipid emia Problem [facility] [id number] Right flank pain Problem [facility] [id number] Benign prostatic hyperplasi a with lower urinary tract symptoms Problem [facility] [id number] Pneumococc al vaccine administer ed Problem [facility] Hemorrhoid s without complicati on Hemorrhoid s without complicati on Problem [facility] Malignant melanoma of trunk Malignant melanoma of torso excluding breast Problem [facility] [id number] Acute pain of right shoulder Problem [facility] [id number] Carpal tunnel syndrome of right wrist Problem [facility] Gastroesop hageal reflux disease GERD (gastroeso phageal reflux disease) Problem [facility] Bradycardi a Bradycardi a Problem [facility] Benign prostatic hypertroph y without outflow obstructio n Benign hypertroph y of prostate Problem [facility] Seasonal allergic rhinitis Allergic rhinitis, seasonal Problem [facility] [id number] Other chronic pain Problem [facility] Diverticul osis of colon Diverticul osis of colon Problem [facility] [id number] Lateral epicondyli tis, right elbow Problem [facility] [id number] Diverticul osis of large intestine without hemorrhage Problem [facility] [id number] Right wrist pain Problem [facility] [id number] Right elbow pain Problem [facility] [id number] Impingemen t syndrome of right shoulder Problem [facility] Kidney stone Kidney stone Problem [facility] Hypertensi on Hypertensi on Problem [facility] [id number] Difficulty sleeping Problem [facility] [id number] Adult general medical exam Problem [facility] [id number] History of colon polyps Problem [facility] [id number] BPH loc w urin obs/LUTS Problem [facility] 812414234 Diverticul osis Problem [facility] [id number] +5th digit eff 07/19/20*GE RD with esophagiti s Problem [facility] [id number] Gastroesop hageal reflux disease without esophagiti s Problem [facility] Allergies, Adverse Reactions, Alerts Allergy Name Allergy Type Status Severity Reaction(s) Onset Date Inactive Date Treating Clinician Comments Source Sulfa (Sulfona mide Antibiot ics) DA Active U UNKNOWN 02-23 00:00: 00 [facility] iodine DA Active U UNKNOWN 02-23 00:00: 00 [facility] Penicill ins DA Active U 02-23 00:00: 00 [facility] Sulfa (Sulfona mide Antibiot ics) DA Active U 02-23 00:00: 00 [facility] iodine DA Active U 02-23 00:00: 00 [facility] Penicill ins DA Active U SHOCK 02-23 00:00: 00 [facility] 463 Drug allergy Active Unknown [facility] Social History Social Habit Start Date Stop Date Quantity Comments Source History of Tobacco Use [facility] Sex Assigned At [facility] Smoking Status Start Date Stop Date Source Never Smoker [facility] Medications Ordered Medication Name Filled Medication Name Start Date Stop Date Current Medication? Ordering Clinician Indication Dosage Frequency Signature (SIG) Comments Components Source Flomax 0.4 MG Flomax 0.4 MG 2021-10 0- 00:00: 00 08-09 00:00 :00 No 1{capsu le} QD Flomax 0.4 MG Tamsulosin HCl Tamsulosin HCl 03-08 00:00: 00 09-03 00:00 :00 No Na Aceves 1 capsule [facility] Omeprazole Omeprazole 11-01 00:00: 00 Yes Na Aceves 1 capsule [facility] Omeprazole 40 MG Omeprazole 40 MG 11-01 00:00: 00 No 1{capsu le} QD Omeprazole 40 MG Omeprazole 40 MG Omeprazole 40 MG 11-01 00:00: 00 No 1{capsu le} QD Omeprazole 40 MG Omeprazole 40 MG Omeprazole 40 MG 11-01 00:00: 00 No 1{capsu le} QD Omeprazole 40 MG Omeprazole 40 MG Omeprazole 40 MG 11-01 00:00: 00 No 1{capsu le} QD Omeprazole 40 MG Omeprazole 40 MG Omeprazole 40 MG 11-01 00:00: 00 No 1{capsu le} QD Omeprazole 40 MG Omeprazole 40 MG Omeprazole 40 MG 11-01 00:00: 00 No 1{capsu le} QD Omeprazole 40 MG Omeprazole 40 MG Omeprazole 40 MG 11-01 00:00: 00 No 1{capsu le} QD Omeprazole 40 MG Omeprazole 40 MG Omeprazole 40 MG 11-01 00:00: 00 No 1{capsu le} QD Omeprazole 40 MG [facility] 2017-10 00:00: 00 No 2.5mg [facility] Depo Medrol (40mg) Depo Medrol (40mg) 2017-10 00:00: 00 No 40mg [facility] 2017-10 00:00: 00 No 2.5mg [facility] Depo Medrol (40mg) Depo Medrol (40mg) 2017-10 00:00: 00 No 40mg [facility] 2017-10 00:00: 00 No 2.5mg [facility] Depo Medrol (40mg) Depo Medrol (40mg) 2017-10 00:00: 00 No 40mg [facility] 2017-10 00:00: 00 No 2.5mg [facility] Depo Medrol (40mg) Depo Medrol (40mg) 2017-10 00:00: 00 No 40mg [facility] 2017-10 00:00: 00 No 2.5mg [facility] Depo Medrol (40mg) Depo Medrol (40mg) 2017-10 00:00: 00 No 40mg [facility] 2017-10 00:00: 00 No 2.5mg [facility] Depo Medrol (40mg) Depo Medrol (40mg) 2017-10 00:00: 00 No 40mg [facility]iv[facility] 2017-10 00:00: 00 No 2.5mg [facility] Depo Medrol (40mg) Depo Medrol (40mg) 2017-10 00:00: 00 No 40mg [facility] 2017-10 00:00: 00 No 2.5mg [facility] Depo Medrol (40mg) Depo Medrol (40mg) 2017-10 00:00: 00 No 40mg [facility] 2017-10 00:00: 00 No 2.5mg [facility] Depo Medrol (40mg) Depo Medrol (40mg) 2017-10 00:00: 00 No 40mg [facility] 2017-10 00:00: 00 No 2.5mg [facility] Depo Medrol (40mg) Depo Medrol (40mg) 2017-10 00:00: 00 No 40mg [facility] 2017-10 00:00: 00 No 2.5mg [facility] Depo Medrol (40mg) Depo Medrol (40mg) 2017-10 00:00: 00 No 40mg [facility] Betamethaso ne Sodium Phosphate Betamethaso ne Sodium Phosphate 2017-10 00:00: 00 No 30mg [facility] LIDOCAINE HCL 10MG/ML LIDOCAINE HCL 10MG/ML 2017-10 00:00: 00 No 10mg [facility] Betamethaso ne Sodium Phosphate Betamethaso ne Sodium Phosphate 2017-10 00:00: 00 No 30mg [facility] LIDOCAINE HCL 10MG/ML LIDOCAINE HCL 10MG/ML 2017-10 00:00: 00 No 10mg [facility] Betamethaso ne Sodium Phosphate Betamethaso ne Sodium Phosphate 2017-10 00:00: 00 No 30mg [facility] LIDOCAINE HCL 10MG/ML LIDOCAINE HCL 10MG/ML 2017-10 00:00: 00 No 10mg [facility] Betamethaso ne Sodium Phosphate Betamethaso ne Sodium Phosphate 2017-10 00:00: 00 No 30mg [facility] LIDOCAINE HCL 10MG/ML LIDOCAINE HCL 10MG/ML 2017-10 00:00: 00 No 10mg Common [facility] Betamethaso ne Sodium Phosphate Betamethaso ne Sodium Phosphate 2017-10 00:00: 00 No 30[facility] LIDOCAINE HCL 10MG/ML LIDOCAINE HCL 10MG/ML 2017-10 00:00: 00 No 10mg [facility] Betamethaso ne Sodium Phosphate Betamethaso ne Sodium Phosphate 2017-10 00:00: 00 No 30mg [facility] LIDOCAINE HCL 10MG/ML LIDOCAINE HCL 10MG/ML 2017-10 00:00: 00 No 10mg [facility] Betamethaso ne Sodium Phosphate Betamethaso ne Sodium Phosphate 2017-10 00:00: 00 No 30mg [facility] LIDOCAINE HCL 10MG/ML LIDOCAINE HCL 10MG/ML 2017-10 00:00: 00 No 10mg [facility] Betamethaso ne Sodium Phosphate Betamethaso ne Sodium Phosphate 2017-10 00:00: 00 No 30mg [facility] LIDOCAINE HCL 10MG/ML LIDOCAINE HCL 10MG/ML 2017-10 00:00: 00 No 10mg [facility] Betamethaso ne Sodium Phosphate Betamethaso ne Sodium Phosphate 2017-10 00:00: 00 No 30mg [facility] LIDOCAINE HCL 10MG/ML LIDOCAINE HCL 10MG/ML 2017-10 00:00: 00 No 10mg [facility] Betamethaso ne Sodium Phosphate Betamethaso ne Sodium Phosphate 2017-10 00:00: 00 No 30mg [facility] LIDOCAINE HCL 10MG/ML LIDOCAINE HCL 10MG/ML 2017-10 00:00: 00 No 10mg [facility] Betamethaso ne Sodium Phosphate Betamethaso ne Sodium Phosphate 2017-10 00:00: 00 No 30mg [facility] LIDOCAINE HCL 10MG/ML LIDOCAINE HCL 10MG/ML 2017-10 00:00: 00 No 10mg [facility] Metoprolol Tartrate Metoprolol Tartrate Yes Na Aceves 1 tablet with food [facility] Metoprolol Succinate ER Metoprolol Succinate ER Yes Na Aceves 1 tablet [facility] Tamsulosin HCl 0.4 MG Tamsulosin HCl 0.4 MG No 1{capsu le} QD Tamsulosin HCl 0.4 MG Tamsulosin HCl 0.4 MG Tamsulosin HCl 0.4 MG No 1{capsu le} QD Tamsulosin HCl 0.4 MG Metoprolol Succinate ER 25 MG Metoprolol Succinate ER 25 MG No 1{table t} QD Metoprolol Succinate ER 25 MG Metoprolol Tartrate 25 MG Metoprolol Tartrate 25 MG No 1{table t_with_ food} BID Metoprolol Tartrate 25 MG Tamsulosin HCl 0.4 MG Tamsulosin HCl 0.4 MG No 1{capsu le} QD Tamsulosin HCl 0.4 MG Metoprolol Succinate ER 25 MG Metoprolol Succinate ER 25 MG No 1{table t} QD Metoprolol Succinate ER 25 MG Tamsulosin HCl 0.4 MG Tamsulosin HCl 0.4 MG No 1{capsu le} QD Tamsulosin HCl 0.4 MG Metoprolol Succinate ER 25 MG Metoprolol Succinate ER 25 MG No 1{table t} QD Metoprolol Succinate ER 25 MG Metoprolol Succinate ER 25 MG Metoprolol Succinate ER 25 MG No 1{table t} QD Metoprolol Succinate ER 25 MG Tamsulosin HCl 0.4 MG Tamsulosin HCl 0.4 MG No 1{capsu le} QD Tamsulosin HCl 0.4 MG Metoprolol Succinate ER 25 MG Metoprolol Succinate ER 25 MG No 1{table t} QD Metoprolol Succinate ER 25 MG Tamsulosin HCl 0.4 MG Tamsulosin HCl 0.4 MG No 1{capsu le} QD Tamsulosin HCl 0.4 MG Metoprolol Succinate ER 25 MG Metoprolol Succinate ER 25 MG No 1{table t} QD Metoprolol Succinate ER 25 MG Tamsulosin HCl 0.4 MG Tamsulosin HCl 0.4 MG No 1{capsu le} QD Tamsulosin HCl 0.4 MG Metoprolol Succinate ER 25 MG Metoprolol Succinate ER 25 MG No 1{table t} QD Metoprolol Succinate ER 25 MG Tamsulosin HCl 0.4 MG Tamsulosin HCl 0.4 MG No 1{capsu le} QD Tamsulosin HCl 0.4 MG Metoprolol Succinate ER 25 MG Metoprolol Succinate ER 25 MG No 1{table t} QD Metoprolol Succinate ER 25 MG Tamsulosin HCl 0.4 MG Tamsulosin HCl 0.4 MG No 1{capsu le} QD Tamsulosin HCl 0.4 MG Metoprolol Succinate ER 25 MG Metoprolol Succinate ER 25 MG No 1{table t} QD Metoprolol Succinate ER 25 MG Tamsulosin HCl 0.4 MG Tamsulosin HCl 0.4 MG No 1{capsu le} QD Tamsulosin HCl 0.4 MG Metoprolol Succinate ER 25 MG Metoprolol Succinate ER 25 MG No 1{table t} QD Metoprolol Succinate ER 25 MG Tamsulosin HCl 0.4 MG Tamsulosin HCl 0.4 MG No 1{capsu le} QD Tamsulosin HCl 0.4 MG Metoprolol Succinate ER 25 MG Metoprolol Succinate ER 25 MG No 1{table t} QD Metoprolol Succinate ER 25 MG Tamsulosin HCl 0.4 MG Tamsulosin HCl 0.4 MG No 1{capsu le} QD Tamsulosin HCl 0.4 MG Metoprolol Succinate ER 25 MG Metoprolol Succinate ER 25 MG No 1{table t} QD Metoprolol Succinate ER 25 MG Tamsulosin HCl 0.4 MG Tamsulosin HCl 0.4 MG No 1{capsu le} QD Tamsulosin HCl 0.4 MG Metoprolol Tartrate 25 MG Metoprolol Tartrate 25 MG No 1{table t_with_ food} BID Metoprolol Tartrate 25 MG Metoprolol Succinate ER 25 MG Metoprolol Succinate ER 25 MG No 1{table t} QD Metoprolol Succinate ER 25 MG Tamsulosin HCl 0.4 MG Tamsulosin HCl 0.4 MG No 1{capsu le} QD Tamsulosin HCl 0.4 MG Metoprolol Tartrate 25 MG Metoprolol Tartrate 25 MG No 1{table t_with_ food} BID Metoprolol Tartrate 25 MG Metoprolol Tartrate 25 MG Metoprolol Tartrate 25 MG No 1{table t_with_ food} BID Metoprolol Tartrate 25 MG Tamsulosin HCl 0.4 MG Tamsulosin HCl 0.4 MG No 1{capsu le} QD Tamsulosin HCl 0.4 MG Metoprolol Succinate ER 25 MG Metoprolol Succinate ER 25 MG No 1{table t} QD Metoprolol Succinate ER 25 MG Tamsulosin HCl 0.4 MG Tamsulosin HCl 0.4 MG No 1{capsu le} QD Tamsulosin HCl 0.4 MG Metoprolol Tartrate 25 MG Metoprolol Tartrate 25 MG No 1{table t_with_ food} BID Metoprolol Tartrate 25 MG Metoprolol Succinate ER 25 MG Metoprolol Succinate ER 25 MG No 1{table t} QD Metoprolol Succinate ER 25 MG Tamsulosin HCl 0.4 MG Tamsulosin HCl 0.4 MG No 1{capsu le} QD Tamsulosin HCl 0.4 MG Immunizations Ordered Immunization Name Filled Immunization Name Date Status Comments Source FLUZONE HIGH DOSE OVER 65 FLUZONE HIGH DOSE OVER 65 2021-09-05 09:51:00 Completed [facility] FLUZONE HIGH DOSE OVER 65 FLUZONE HIGH DOSE OVER 65 2021-09-05 09:51:00 Completed [facility] FLUZONE HIGH DOSE OVER 65 FLUZONE HIGH DOSE OVER 65 2021-09-05 09:51:00 Completed [facility] FLUZONE HIGH DOSE OVER 65 FLUZONE HIGH DOSE OVER 65 2021-09-05 09:51:00 Completed [facility] FLUZONE HIGH DOSE OVER 65 FLUZONE HIGH DOSE OVER 65 2021-09-05 09:51:00 Completed [facility] FLUZONE HIGH DOSE OVER 65 FLUZONE HIGH DOSE OVER 65 2021-09-05 09:51:00 Completed [facility] FluAD FluAD 2019-08-02 10:58:00 Completed [facility] FluAD FluAD 2019-08-02 10:58:00 Completed [facility] FluAD FluAD 2019-08-02 10:58:00 Completed [facility] FluAD FluAD 2019-08-02 10:58:00 Completed [facility] FluAD FluAD 2019-08-02 10:58:00 Completed [facility] FluAD FluAD 2019-08-02 10:58:00 Completed [facility] FluAD FluAD 2019-08-02 10:58:00 Completed [facility] FluAD FluAD 2019-08-02 10:58:00 Completed [facility] FluAD FluAD 2019-08-02 00:00:00 Completed [facility] FluAD FluAD 2018-07-28 16:28:00 Completed [facility] FluAD FluAD 2018-07-28 16:28:00 Completed [facility] FluAD FluAD 2018-07-28 16:28:00 Completed [facility] FluAD FluAD 2018-07-28 16:28:00 Completed [facility] FluAD FluAD 2018-07-28 16:28:00 Completed [facility] FluAD FluAD 2018-07-28 16:28:00 Completed [facility] FluAD FluAD 2018-07-28 16:28:00 Completed [facility] FluAD FluAD 2018-07-28 16:28:00 Completed [facility] Prevnar 13 -Pneumonia Vaccine Prevnar 13 -Pneumonia Vaccine 2018-01-26 09:46:00 Completed [facility] Prevnar 13 -Pneumonia Vaccine Prevnar 13 -Pneumonia Vaccine 2018-01-26 09:46:00 Completed [facility] Prevnar 13 -Pneumonia Vaccine Prevnar 13 -Pneumonia Vaccine 2018-01-26 09:46:00 Completed [facility] Prevnar 13 -Pneumonia Vaccine Prevnar 13 -Pneumonia Vaccine 2018-01-26 09:46:00 Completed [facility] Prevnar 13 -Pneumonia Vaccine Prevnar 13 -Pneumonia Vaccine 2018-01-26 09:46:00 Completed [facility] Prevnar 13 -Pneumonia Vaccine Prevnar 13 -Pneumonia Vaccine 2018-01-26 09:46:00 Completed [facility] Prevnar 13 -Pneumonia Vaccine Prevnar 13 -Pneumonia Vaccine 2018-01-26 09:46:00 Completed [facility] Prevnar 13 -Pneumonia Vaccine Prevnar 13 -Pneumonia Vaccine 2018-01-26 09:46:00 Completed [facility] FluAD FluAD Unknown Completed [facility] FluAD FluAD Unknown Completed [facility] Prevnar 13 -Pneumonia Vaccine Prevnar 13 -Pneumonia Vaccine Unknown Completed [facility] FLUZONE HIGH DOSE OVER 65 FLUZONE HIGH DOSE OVER 65 Unknown Completed [facility] FluAD FluAD Unknown Completed [facility] FluAD FluAD Unknown Completed [facility] Prevnar 13 -Pneumonia Vaccine Prevnar 13 -Pneumonia Vaccine Unknown Completed [facility] FLUZONE HIGH DOSE OVER 65 FLUZONE HIGH DOSE OVER 65 Unknown Completed [facility] FluAD FluAD Unknown Completed [facility] FluAD FluAD Unknown Completed [facility] Prevnar 13 -Pneumonia Vaccine Prevnar 13 -Pneumonia Vaccine Unknown Completed [facility] FLUZONE HIGH DOSE OVER 65 FLUZONE HIGH DOSE OVER 65 Unknown Completed [facility] FluAD FluAD Unknown Completed [facility] FluAD FluAD Unknown Completed [facility] Prevnar 13 -Pneumonia Vaccine Prevnar 13 -Pneumonia Vaccine Unknown Completed [facility] FLUZONE HIGH DOSE OVER 65 FLUZONE HIGH DOSE OVER 65 Unknown Completed [facility] Fluad (aIIV4) - SDS - 0.5mL Fluad (aIIV4) - SDS - 0.5mL Unknown Completed [facility] FluAD FluAD Unknown Completed [facility] FluAD FluAD Unknown Completed [facility] Prevnar 13 -Pneumonia Vaccine Prevnar 13 -Pneumonia Vaccine Unknown Completed [facility] FLUZONE HIGH DOSE OVER 65 FLUZONE HIGH DOSE OVER 65 Unknown Completed [facility] Fluad (aIIV4) - SDS - 0.5mL Fluad (aIIV4) - SDS - 0.5mL Unknown Completed [facility] FluAD FluAD Unknown Completed [facility] FluAD FluAD Unknown Completed [facility] Prevnar 13 -Pneumonia Vaccine Prevnar 13 -Pneumonia Vaccine Unknown Completed [facility] FLUZONE HIGH DOSE OVER 65 FLUZONE HIGH DOSE OVER 65 Unknown Completed [facility] Fluad (aIIV4) - SDS - 0.5mL Fluad (aIIV4) - SDS - 0.5mL Unknown Completed [facility] FluAD FluAD Unknown Completed [facility] FluAD FluAD Unknown Completed [facility] Prevnar 13 -Pneumonia Vaccine Prevnar 13 -Pneumonia Vaccine Unknown Completed [facility] FLUZONE HIGH DOSE OVER 65 FLUZONE HIGH DOSE OVER 65 Unknown Completed [facility] Vital Signs Vital Name Observation Time Observation Value Comments Amita sarah height 2023-07-02 08:40:00 73.00 [in_i] Com [facility] weight 2023-07-02 08:40:00 174.6 [lb_av] Co [facility] temperature 2023-07-02 08:40:00 98.3 [degF] Com [facility] bmi 2023-07-02 08:40:00 23.03 kg/m2 Comm on [facility] oximetry 2023-07-02 08:40:00 97 % Commo n [facility] respiratory rate 2023-07-02 08:40:00 18 /min [facility] blood pressure systolic 2023-07-02 08:40:00 123 mm[Hg] [facility] blood pressure diastolic 2023-07-02 08:40:00 72 mm[Hg] [facility] height 2023-07-02 09:00:00 73.00 [in_i] Com [facility] weight 2023-07-02 09:00:00 174.6 [lb_av] Co mmon [facility] temperature 2023-07-02 09:00:00 98.3 [degF] Com [facility] bmi 2023-07-02 09:00:00 23.03 kg/m2 Comm on [facility] oximetry 2023-07-02 09:00:00 97 % Commo n [facility] respiratory rate 2023-07-02 09:00:00 18 /min [facility] blood pressure systolic 2023-07-02 09:00:00 123 mm[Hg] [facility] blood pressure diastolic 2023-07-02 09:00:00 72 mm[Hg] [facility] height 2023-03-30 11:00:00 73.00 [in_i] Com [facility] weight 2023-03-30 11:00:00 172.8 [lb_av] Co [facility] temperature 2023-03-30 11:00:00 98.0 [degF] Com [facility] bmi 2023-03-30 11:00:00 22.8 kg/m2 Commo n [facility] oximetry 2023-03-30 11:00:00 99 % Commo n [facility] respiratory rate 2023-03-30 11:00:00 18 /min [facility] blood pressure systolic 2023-03-30 11:00:00 115 mm[Hg] Common [facility] blood pressure diastolic 2023-03-30 11:00:00 69 mm[Hg] Common [facility] height 2023-02-19 11:15:00 73.00 [in_i] Com [facility] weight 2023-02-19 11:15:00 178.2 [lb_av] Co [facility] temperature 2023-02-19 11:15:00 98.2 [degF] Com [facility] bmi 2023-02-19 11:15:00 23.51 kg/m2 Comm on [facility] oximetry 2023-02-19 11:15:00 98 % Commo n [facility] respiratory rate 2023-02-19 11:15:00 18 /min [facility] blood pressure systolic 2023-02-19 11:15:00 112 mm[Hg] [facility] blood pressure diastolic 2023-02-19 11:15:00 57 mm[Hg] Common [facility] height 2023-01-08 08:20:00 73.00 [in_i] Com [facility] weight 2023-01-08 08:20:00 181.8 [lb_av] Co mmon [facility] temperature 2023-01-08 08:20:00 97.6 [degF] Com [facility] bmi 2023-01-08 08:20:00 23.98 kg/m2 Comm on [facility] oximetry 2023-01-08 08:20:00 97 % Commo n [facility] respiratory rate 2023-01-08 08:20:00 17 /min [facility] blood pressure systolic 2023-01-08 08:20:00 105 mm[Hg] [facility] pressure diastolic 2023-01-08 08:20:00 64 mm[Hg] Common [facility] height 2022-08-14 14:30:00 73.00 [in_i] Com [facility] weight 2022-08-14 14:30:00 181.2 [lb_av] Co [facility] temperature 2022-08-14 14:30:00 98.3 [degF] Com [facility] bmi 2022-08-14 14:30:00 23.9 kg/m2 Commo n [facility] oximetry 2022-08-14 14:30:00 97 % Commo n [facility] respiratory rate 2022-08-14 14:30:00 18 /min [facility] blood pressure systolic 2022-08-14 14:30:00 119 mm[Hg] [facility] blood pressure diastolic 2022-08-14 14:30:00 64 mm[Hg] Common [facility] height 2022-06-12 09:20:00 73.00 [in_i] Com [facility] weight 2022-06-12 09:20:00 179.2 [lb_av] Co [facility] temperature 2022-06-12 09:20:00 98.8 [degF] Com [facility] bmi 2022-06-12 09:20:00 23.64 kg/m2 Comm on [facility] oximetry 2022-06-12 09:20:00 98 % Commo n [facility] respiratory rate 2022-06-12 09:20:00 17 /min [facility] blood pressure systolic 2022-06-12 09:20:00 103 mm[Hg] [facility] blood pressure diastolic 2022-06-12 09:20:00 68 mm[Hg] [facility] height 2022-06-12 09:20:00 73.00 [in_i] Com [facility] weight 2022-06-12 09:20:00 179.2 [lb_av] Co [facility] temperature 2022-06-12 09:20:00 98.8 [degF] Com [facility] bmi 2022-06-12 09:20:00 23.64 kg/m2 Comm on [facility] oximetry 2022-06-12 09:20:00 98 % Commo n [facility] respiratory rate 2022-06-12 09:20:00 17 /min [facility] blood pressure systolic 2022-06-12 09:20:00 103 mm[Hg] [facility] diastolic 2022-06-12 09:20:00 68 mm[Hg] [facility] height 2022-05-12 08:00:00 73.00 [in_i] Com [facility] weight 2022-05-12 08:00:00 183.4 [lb_av] Co [facility] temperature 2022-05-12 08:00:00 97.2 [degF] Com [facility] bmi 2022-05-12 08:00:00 24.19 kg/m2 Comm on [facility] oximetry 2022-05-12 08:00:00 95 % Commo n [facility] respiratory rate 2022-05-12 08:00:00 15 /min [facility] blood pressure systolic 2022-05-12 08:00:00 123 mm[Hg] [facility] blood pressure diastolic 2022-05-12 08:00:00 72 mm[Hg] [facility] height 2021-11-12 14:20:00 73.00 [in_i] Com [facility] weight 2021-11-12 14:20:00 190.4 [lb_av] Co mmon [facility] temperature 2021-11-12 14:20:00 97.4 [degF] Com [facility] bmi 2021-11-12 14:20:00 25.12 kg/m2 Comm on [facility] oximetry 2021-11-12 14:20:00 99 % Commo n [facility] respiratory rate 2021-11-12 14:20:00 16 /min [facility] blood pressure systolic 2021-11-12 14:20:00 130 mm[Hg] [facility] blood pressure diastolic 2021-11-12 14:20:00 70 mm[Hg] [facility] Encounters Start Date/Time End Date/Time Encounter Type Admission Type Attending Clinicians Care Facility Care Department Encounter ID Source 2023-09-24 10:57:00 Outpatient CamJossy jainh [facility] [id number] [facility] 2023-06-30 10:30:00 Outpatient TutuJossyh [facility] [id number] [facility] 2023 10:12:01 Outpatient Tutu David [facility] [id number] [facility] 2022-11-14 14:40:00 Outpatient Enedina Burnett [facility] [id number] [facility] 2022-06-11 11:53:00 Outpatient AcevesMacie landin [facility] [id number] [facility] 2022-05-12 08:02:00 Outpatient Macie Aceves [facility] [id number] [facility] 2022-05-01 15:44:01 Outpatient Macie Aceves [facility] [id number] [facility] 2021-11-13 14:40:11 Outpatient AcevesMacie landin [facility] [id number] [facility] 2021-11-13 14:38:55 Outpatient Macie Aceves [facility] [id number] [facility] 2021-11-13 14:24:23 Outpatient Macie Aceves [facility] [id number] [facility] 2021-11-13 12:13:36 Outpatient Macie Aceves [facility] [id number] [facility] 2021-11-13 11:24:47 Outpatient Macie Aceves [facility] [id number] [facility] 2021-11-13 11:17:17 Outpatient Macie Aceves [facility] [id number] [facility] 2023-07-02 00:00:00 2023-07-02 00:00:00 OFFICE VISIT ESTAB PT LEVEL 4 [facility] [id number] [facility] 2023-07-02 00:00:00 2023-07-02 00:00:00 SUB ANNUAL [facility] WELLNESS VISIT [facility] [id number] [facility] 2023-05-19 00:00:00 2023-05-19 00:00:00 (TEL) [facility] [id number] [facility] 2023-03-30 00:00:00 2023-03-30 00:00:00 OFFICE VISIT ESTAB PT LEVEL 4 [facility] [id number] [facility] 2023-02-19 00:00:00 2023-02-19 00:00:00 OFFICE VISIT ESTAB PT LEVEL 4 [facility] [id number] [facility] 2023-01-08 00:00:00 2023-01-08 00:00:00 OFFICE VISIT ESTAB PT LEVEL 3 [facility] [id number] [facility] 2022-12-11 00:00:00 2022-12-11 00:00:00 OFFICE VISIT ESTAB PT LEVEL 3 [facility] [id number] [facility] 2022-08-14 00:00:00 2022-08-14 00:00:00 OFFICE VISIT NEW PT LEVEL 3 [facility] [id number] [facility] 2022-06-12 00:00:00 2022-06-12 00:00:00 SUB ANNUAL [facility] WELLNESS VISIT STLMLC STL[facility]C [id number] [facility] 2022-06-12 00:00:00 2022-06-12 00:00:00 NO CHARGE [facility] ST[facility]C [id number] [facility] 2022-05-12 00:00:00 2022-05-12 00:00:00 OFFICE VISIT EST PT LEVEL 3 [facility] [id number] [facility] 2021-11-12 00:00:00 2021-11-12 00:00:00 OFFICE VISIT EST PT LEVEL 3 [facility] [id number] [facility] 2021-09-05 00:00:00 2021-09-05 00:00:00 OFFICE VISIT EST PT LEVEL 3 [facility] [id number] [facility] 2021-09-03 00:00:00 2021-09-03 00:00:00 (TEL) [facility] [id number] [facility] 2021-08-29 00:00:00 2021-08-29 00:00:00 (TEL) [facility] [id number] [facility] 2021-04-07 00:00:00 2021-04-07 00:00:00 Outpatient [facility] [id number] [facility] 2021-04-04 00:00:00 2021-04-04 00:00:00 Outpatient [facility] [id number] [facility] 2021-04-04 00:00:00 2021-04-04 00:00:00 Outpatient [facility] [id number] [facility] 2020-10-04 00:00:00 2020-10-04 00:00:00 Outpatient [facility] [id number] [facility] 2020-10-04 00:00:00 2020-10-04 00:00:00 Outpatient [facility] [id number] [facility] 2020-03-26 10:40:00 2020-03-26 10:40:[address] [facility] [facility] [id number] [facility] 2020-03-08 10:00:00 2020-03-08 10:00:00 [facility] [id number] [facility] 2020-01-26 09:30:00 2020-01-26 09:30:00 [facility] [id number] [facility] 2019-12-01 08:15:00 2019-12-01 08:15:00 [facility] [id number] [facility] 2019-11-01 11:20:00 2019-11-01 11:20:00 [facility] [id number] [facility] 2019-10-07 15:00:00 2019-10-07 15:00:00 Outpatient Vinh Light [facility] [id number] [facility] 2019-09-20 10:07:00 2019-09-20 10:07:[address] [facility] [facility] [id number] [facility] 2019-09-19 08:00:00 2019-09-19 08:00:[address] [facility] [facility] [id number] [facility] 2019-09-13 08:05:00 2019-09-13 08:05:[address] [facility] [id number] [facility] 2019-09-02 14:48:00 2019-09-02 14:48:00 [facility] [id number] [facility] 2019-08-02 09:00:00 2019-08-02 09:00:[address] [facility] [facility] [id number] [facility] 2019-07-20 11:00:00 2019-07-20 11:00:00 [facility] [id number] [facility] 2019-06-02 16:21:00 2019-06-02 16:21:[address] [facility] [id number] [facility] 2019-06-02 13:15:00 2019-06-02 13:15:00 [facility] [id number] [facility] 2019-03-03 13:45:00 2019-03-03 13:45:00 [facility] [id number] [facility] 2019-01-28 14:30:00 2019-01-28 14:30:00 [facility] [id number] [facility] 2019-01-27 10:00:00 2019-01-27 10:00:00 [facility] [id number] [facility] 2018-11-11 08:30:00 2018-11-11 08:30:00 [facility] [id number] [facility] 2018-10-04 08:00:00 2018-10-04 08:00:00 [facility] [id number] [facility] Results Test Description Test Time Test Comments Results Result Co mments Source HEMOGLOBIN [id number] 00:00:00* Test Item Value Reference Range Interpretation Comme nts HEMOGLOBIN A1c (test code = 4548-4) 5.5 % See_Comment [Automated [employer]] The system which generated this result transmitted reference range: 4.2-5.6 %. The reference range was not used to interpret this result as normal/abnormal. TSH REFLEX TO FREE [id number] 00:00:00* Test Item Value Reference Range Interpretation Comme nts TSH REFLEX TO FREE T4 (test code = 05118-2) 1.090 UIU/ML See_Comment [Automated [employer]] The system which generated this result transmitted reference range: 0.400-4.100 UIU/ML. The reference range was not used to interpret this result as normal/abnormal. URINALYSIS (CULTURE IF INDICATED)2023-06-25 00:00:00* Test Item Value Reference Range Interpretation Comme nts APPEARANCE (test code = 5767-9) TURBID CLEAR A BACTERIA (test code = 71569-2) NONE SEEN NONE SEEN BILIRUBIN (test code = 5770-3) NEGATIVE NEGATIVE CASTS, HYALINE (test code = 64219-6) NONE SEEN NONE-TRACE COLOR (test code = 5778-6) DARK YELLOW YELLOW-STRAW A EPITHELIAL CELLS (test code = 70271-9) 0-5 /HPF See_Comment [Automated [employer]] The system which generated this result transmitted reference range: 0-5 /HPF. The reference range was not used to interpret this result as normal/abnormal. GLUCOSE (test code = 5792-7) NEGATIVE NEGATIVE KETONES (test code = 5797-6) NEGATIVE NEGATIVE LEUKOCYTE ESTERASE (test code = 5799-2) NEGATIVE NEGATIVE NITRITE (test code = 5802-4) NEGATIVE NEGATIVE OCCULT BLOOD (test code = 19790-2) NEGATIVE NEGATIVE pH (test code = 5803-2) 5.5 5.0-9.0 PROTEIN (test code = 05155-5) NEGATIVE NEGATIVE RED BLOOD CELLS (test code = 74947-4) 0-2 /HPF See_Comment [Automated [employer]] The system which generated this result transmitted reference range: 0-2 /HPF. The reference range was not used to interpret this result as normal/abnormal. SPECIFIC GRAVITY (test code = 5811-5) 1.022 1.005-1.035 UROBILINOGEN (test code = 91789-9) 0.2 MG/DL See_Comment [Automated [employer]] The system which generated this result transmitted reference range: <=2.0 MG/DL. The reference range was not used to interpret this result as normal/abnormal. WHITE BLOOD CELLS (test code = 73256-6) 0-5 /HPF See_Comment [Automated message] The system which generated this result transmitted reference range: 0-5 /HPF. The reference range was not used to interpret this result as normal/abnormal. LIPID PANEL WITH REFLEX DIRECT [id number] 00:00:00* Test Item Value Reference Range Interpretation Comme nts CALC LDL CHOL (test code = 35243-0) 113 MG/DL See_Comment H [Automated [employer]] The system which generated this result transmitted reference range: <100 MG/DL. The reference range was not used to interpret this result as normal/abnormal. CHOLESTEROL (test code = 2093-3) 207 MG/DL See_Comment H [Automated [employer] ge] The system which generated this result transmitted reference range: <200 MG/DL. The reference range was not used to interpret this result as normal/abnormal. HDL CHOLESTEROL (test code = 2085-9) 76 MG/DL See_Comment [Automated [employer] ge] The system which generated this result transmitted reference range: >39 MG/DL. The reference range was not used to interpret this result as normal/abnormal. RISK RATIO LDL/HDL (test code = 99061-8) 1.49 RATIO See_Comment [Automated message] The system which generated this result transmitted reference range: <3.55 RATIO. The reference range was not used to interpret this result as normal/abnormal. TRIGLYCERIDES (test code = 2571-8) 83 MG/DL See_Comment [Automated messa ge] The system which generated this result transmitted reference range: <150 MG/DL. The reference range was not used to interpret this result as normal/abnormal. COMPREHENSIVE METABOLIC [id number] 00:00:00* Test Item Value Reference Range Interpretation Comme nts ALBUMIN (test code = 1751-7) 4.3 G/DL See_Comment [Automated messa ge] The system which generated this result transmitted reference range: 3.5-5.2 G/DL. The reference range was not used to interpret this result as normal/abnormal. ALKALINE PHOSPHATASE (test code = 6768-6) 61 U/L See_Comment [Automated message] The system which generated this result transmitted reference range: 40-125 U/L. The reference range was not used to interpret this result as normal/abnormal. BILIRUBIN, TOTAL (test code = 1975-2) 0.8 MG/DL See_Comment [Automated message] The system which generated this result transmitted reference range: <=1.2 MG/DL. The reference range was not used to interpret this result as normal/abnormal. BUN (test code = 3094-0) 17 MG/DL See_Comment [Automated [employer] ge] The system which generated this result transmitted reference range: 8-23 MG/DL. The reference range was not used to interpret this result as normal/abnormal. CALCIUM (test code = 74294-8) 9.4 MG/DL See_Comment [Automated messa ge] The system which generated this result transmitted reference range: 8.5-10.5 MG/DL. The reference range was not used to interpret this result as normal/abnormal. CALC A/G RATIO (test code = 1759-0) 2.0 RATIO See_Comment [Automated [employer]] The system which generated this result transmitted reference range: 1.0-2.6 RATIO. The reference range was not used to interpret this result as normal/abnormal. CALC BUN/CREAT (test code = 3097-3) 18 RATIO See_Comment [Automated messa ge] The system which generated this result transmitted reference range: 6-28 RATIO. The reference range was not used to interpret this result as normal/abnormal. CALC GLOBULIN (test code = 97204-0) 2.2 G/DL See_Comment [Automated messa ge] The system which generated this result transmitted reference range: 1.9-3.7 G/DL. The reference range was not used to interpret this result as normal/abnormal. CARBON DIOXIDE (test code = 1963-8) 27 MEQ/L See_Comment [Automated messa ge] The system which generated this result transmitted reference range: 19-31 MEQ/L. The reference range was not used to interpret this result as normal/abnormal. CHLORIDE (test code = 2075-0) 107 MEQ/L See_Comment [Automated messa ge] The system which generated this result transmitted reference range: 95-107 MEQ/L. The reference range was not used to interpret this result as normal/abnormal. CREATININE (test code = 2160-0) 0.94 MG/DL See_Comment [Automated messa ge] The system which generated this result transmitted reference range: 0.80-1.40 MG/DL. The reference range was not used to interpret this result as normal/abnormal. eGFR (2020 CKD-EPI) (test code = 02853-5) 83 ML/MIN/1.73 See_Comment [Automated messa ge] The system which generated this result transmitted reference range: >60 ML/MIN/1.73. The reference range was not used to interpret this result as normal/abnormal. GLUCOSE (test code = 1558-6) 103 MG/DL See_Comment H [Automated messa ge] The system which generated this result transmitted reference range: 70-99 MG/DL. The reference range was not used to interpret this result as normal/abnormal. POTASSIUM (test code = 2823-3) 4.2 MEQ/L See_Comment [Automated messa ge] The system which generated this result transmitted reference range: 3.5-5.4 MEQ/L. The reference range was not used to interpret this result as normal/abnormal. PROTEIN, TOTAL (test code = 2885-2) 6.5 G/DL See_Comment [Automated messa ge] The system which generated this result transmitted reference range: 6.1-8.3 G/DL. The reference range was not used to interpret this result as normal/abnormal. AST (test code = 1920-8) 22 U/L See_Comment [Automated [employer]] The system which generated this result transmitted reference range: 9-50 U/L. The reference range was not used to interpret this result as normal/abnormal. ALT (test code = 1742-6) 21 U/L See_Comment [Automated [employer]] The system which generated this result transmitted reference range: 5-50 U/L. The reference range was not used to interpret this result as normal/abnormal. SODIUM (test code = 2951-2) 144 MEQ/L See_Comment [Automated [employer]] The system which generated this result transmitted reference range: 133-146 MEQ/L. The reference range was not used to interpret this result as normal/abnormal. - NM MYOCRD SPECT R/S [id number] 16:25:00Patient Name: ROSE MAIRE ROPER Unit No: [id number] EXAMS: CPT CODE: [id number] NM MYOCRD SPECT R/S MULT 58770 INDICATION: Nonsustained ventricular tachycardia. The patient underwent [...] VENTRICULAR SIZE AND SYSTOLIC FUNCTION WITH NORMAL WALLMOTION. END-DIASTOLIC VOLUME IS 103 ML, END-SYSTOLIC VOLUME IS 44 ML, AND THE EJECTION FRACTION IS 57 %. at 4340 Reported and signed by: Vinh Wikc M.D. CC: Vinh Wick Technologist: Felisha Paniagua RT(FL); Rox Segura RT(N) Transcrpt Date/Tm/Trnsp: 10/13/2019 (4048) Jannie Orig Print D/T: S: 10/13/2019 (1922) [facility] NAME: ROSE MARIE ROPER [address] [facility] [address] PHYS: [place] [address] : 1945 AGE: 74 SEX: M : Z.ZNUC PHONE #: [phone] EXAM DATE: 10/03/2019 STATUS: DEP CLI FAX #: [phone] RADIOLOGY NO: PAGE 1 Signed Report Notes Date/Time Note Provider Source 2019-10-07 15:09:00 [id number] [address] PATIENT NAME: ROSE MARIE ROPER ADMIT DATE: ACCOUNT NO: [id number] ROOM NO: AGE: 74 REPORT TYPE: eSTRESS EKG REPORT SEX: M ADMITTING PHYSICIAN: ATTENDING PHYSICIAN:Vinh Wick MD Acquisition Time: 2019-10-07 15:09:32 Test Date/Time Stamp:ThuOct 07 201915:09:32Total Exercise Time: 00:04:40Test Indications: Medications: Protocol: BruceMax HR: 133 BPM 91% of Pred: 146 BPMMax BP: 155/081 mmHGMax Work Load: 7.0 METS Normal hemodynamic exercise stress test; Normal ECG exercise stress testMyocardial perfusion scan to follow Confirmed by VINH WICK MD ([id number]) on 10/13/2019 4:16:55 PM Referred By: Vinh Wick Confirmed by:VINH WICK MD at 1617 PATIENT NAME: ROSE MARIE ROPER .[id number] AVAvailable for patient [id number]:24 [facility]
--- NOTE | 2023-10-30 10:36 | EDPHYS ---
Physician Documentation [facility] Name: Ta Roper Age: 78 yrs Sex: Male : 1945 Arrival Date: 10/30/2023 Time: 09:57 Bed 16 Private MD: [facility] ED Physician Sherrie Cam HPI: 10/30 10:28 This 78 yrs old Male presents to ER via Ambulatory with complaints of Sinus Congestion, sp3 Hearing loss. 10:28 78-year-old male with a history of kidney stones presents to the ED with right-sided sp3 decreased hearing and sinus congestion. Patient was recently treated for conjunctivitis and viral infection "infection" with antibiotics and steroids 7 days ago. Patient states his current symptoms started 2 days ago. He denies any other symptoms including headache, fever, sore throat, shortness of breath, chest pain, cough, abdominal pain, nausea, vomiting, diarrhea, rash, or any other signs or symptoms on ROS at this time.. Historical: - Allergies: 10:22 Iodinated Contrast Media; hb 10:22 PENICILLINS; hb 10:22 Sulfa (Sulfonamide Antibiotics); hb - PMHx: 10:22 Kidney stones; hb - Immunization history:: Client reports receiving the 2nd dose of the Covid vaccine, Flu vaccine is up to date. - Social history:: Smoking status: Patient denies any tobacco usage or history of. ROS: 10:29 Constitutional: Negative for fever, chills, and weight loss, Eyes: Negative for injury, sp3 pain, redness, and discharge, Neck: Negative for injury, pain, and swelling, Cardiovascular: Negative for chest pain, palpitations, and edema, Respiratory: Negative for shortness of breath, cough, wheezing, and pleuritic chest pain, Abdomen/GI: Negative for abdominal pain, nausea, vomiting, diarrhea, and constipation, Back: Negative for injury and pain, MS/Extremity: Negative for injury and deformity, Skin: Negative for injury, rash, and discoloration, Neuro: Negative for headache, weakness, numbness, tingling, and seizure, Psych: Negative for depression, anxiety, suicide ideation, homicidal ideation, and hallucinations, Allergy/Immunology: Negative for hives, rash, and allergies, Endocrine: Negative for neck swelling, polydipsia, polyuria, polyphagia, and marked weight changes, Hematologic/Lymphatic: Negative for swollen nodes, abnormal bleeding, and unusual bruising, 10:29 All other systems are negative, Exam: 10:34 Constitutional: This is a well developed, well nourished patient who is awake, alert, sp3 and in no acute distress. Head/Face: Normocephalic, atraumatic. Eyes: Pupils equal round and reactive to light, extra-ocular motions intact. Lids and lashes normal. Conjunctiva and sclera are non-icteric and not injected. Cornea within normal limits. Periorbital areas with no swelling, redness, or edema. ENT: Nares patent. No nasal discharge, no septal abnormalities noted. External auditory canals are clear. Oropharynx with no redness, swelling, or masses, exudates, or evidence of obstruction, uvula midline. Mucous membranes moist. Neck: Trachea midline, no thyromegaly or masses palpated, and no cervical lymphadenopathy. Supple, full range of motion without nuchal rigidity, or vertebral point tenderness. No Meningismus. Chest/axilla: Normal chest wall appearance and motion. Nontender with no deformity. No lesions are appreciated. Cardiovascular: Regular rate and rhythm with a normal S1 and S2. No gallops, murmurs, or rubs. Normal PMI, no JVD. No pulse deficits. Respiratory: Lungs have equal breath sounds bilaterally, clear to auscultation and percussion. No rales, rhonchi or wheezes noted. No increased work of breathing, no retractions or nasal flaring. Abdomen/GI: Soft, non-tender, with normal bowel sounds. No distension or tympany. No guarding or rebound. No evidence of tenderness throughout. Skin: Warm, dry with normal turgor. Normal color with no rashes, no lesions, and no evidence of cellulitis. MS/ Extremity: Pulses equal, no cyanosis. Neurovascular intact. Full, normal range of motion. Neuro: Awake and alert, GCS 15, oriented to person, place, time, and situation. Cranial nerves II-XII grossly intact. Motor strength 5/5 in all extremities. Sensory grossly intact. Cerebellar exam normal. Normal gait. 10:34 ENT: Decreased hearing on the right side noted. TM appears normal with no fluid and normal light reflex. Remainder of ENT exam is normal.. Vital Signs: 10:21 BP 147 / 78; Pulse 61; Resp 16; Temp 98.1; Pulse Ox 100% ; Weight 74.39 kg; Height 6 hb ft. 0 in. ; Pain 1/; 10:52 BP 114 / 84; Pulse 74; Resp 18; Pulse Ox 100% on R/A; mb9 10:21 Body Mass Index 22.24 (74.39 kg, 182.88 cm) hb 10:21 Pain Scale: Adult hb MDM: 10:19 Patient medically screened. sp3 10:34 Data reviewed: vital signs, nurses notes. ED course: 78-year-old male with sinus sp3 congestion and decreased hearing on the right side of his ear. Differential diagnosis includes viral syndrome versus sinusitis bacterial in origin. I recommended the patient to take OTC Sudafed and we will place him on a Z-Jesus Manuel and he can follow-up with his PCP as needed.. Administered Medications: No medications were administered Disposition Summary: 10/30/23 10:35 Discharge Ordered Notes: Location: Home sp3 Condition: Stable sp3 Diagnosis - Sinusitis, decreased hearing right ear sp3 Followup: sp3 - With: Private Physician - When: Upon discharge from the Emergency Department - Reason: Continuance of care Discharge Instructions: - Discharge Summary Sheet sp3 - Sinusitis, Adult sp3 Forms: - Medication Reconciliation Form sp3 - Thank You Letter sp3 - Antibiotic Education sp3 - Prescription Opioid Use sp3 - Patient Portal Instructions sp3 - Leadership Thank You Letter sp3 Prescriptions: - Zithromax Z-Jesus Manuel 250 mg Oral Tablet - take 1 tablet ORAL route as directed for 5 days Day 1 - take two (2) tablets sp3 one time. Day 2, 3, 4 , 5 take one (1) tablet once daily.; 6 tablet; Refills: 0, Product Selection Permitted Signatures: Heydi Bustamante, RN RN Sherrie Cabral MD MD sp3
--- NOTE | 2023-10-30 10:36 | ER ---
[facility] Name: Ta Roper Age: 78 yrs Sex: Male : 1945 Arrival Date: 10/30/2023 Time: 09:57 Bed 16 Private MD: David Cam Diagnosis: Sinusitis, decreased hearing right ear Presentation: 10/30 10:21 Chief complaint: Sinus congestion x 1 week, decreased hearing in right ear x 5 days. hb Coronavirus screen: Client presents with at least one sign or symptom that may indicate coronavirus-19. Provider contacted for isolation considerations. Ebola Screen: No symptoms or risks identified at this time. Initial Sepsis Screen: Does the patient meet any 2 criteria? No. Patient's initial sepsis screen is negative. Does the patient have a suspected source of infection? No. Patient's initial sepsis screen is negative. Risk Assessment: Do you want to hurt yourself or someone else? Patient reports no desire to harm self or others. Onset of symptoms was October 24, 2023. 10:21 Method Of Arrival: Ambulatory hb 10:21 Acuity: GRAHAM 4 hb Historical: - Allergies: 10:22 Iodinated Contrast Media; hb 10:22 PENICILLINS; hb 10:22 Sulfa (Sulfonamide Antibiotics); hb - PMHx: 10:22 Kidney stones; hb - Immunization history:: Client reports receiving the 2nd dose of the Covid vaccine, Flu vaccine is up to date. - Social history:: Smoking status: Patient denies any tobacco usage or history of. Screenin:23 [facility] ED Fall Risk Assessment (Adult) History of falling in the last 3 months, mb9 including since admission No falls in past 3 months (0 pts) Confusion or Disorientation No (0 pts) Intoxicated or Sedated No (0 pts) Impaired Gait No (0 pts) Mobility Assist Device Used No (0 pt) Altered Elimination No (0 pt) Score/Fall Risk Level 0 - 2 = Low Risk Oriented to surroundings, Maintained a safe environment, Educated pt \T\ family on fall prevention, incl call for assistance when getting out of bed. Abuse screen: Denies threats or abuse. Nutritional screening: No deficits noted. Tuberculosis screening: No symptoms or risk factors identified. Assessment: 10:51 General: Appears in no apparent distress. Behavior is calm, cooperative. Pain: Denies mb9 pain. Neuro: Dewey Agitation-Sedation Scale (RASS): 0 - Alert and Calm Level of Consciousness is awake, alert, obeys commands, Oriented to person, place, time, situation, Appropriate for age Reports dizziness. Cardiovascular: Patient's skin is warm and dry. Respiratory: Reports cough that is Airway is patent Respiratory effort is even, unlabored, Respiratory pattern is regular, symmetrical, Breath sounds are clear bilaterally. GI: No signs and/or symptoms were reported involving the gastrointestinal system. : No signs and/or symptoms were reported regarding the genitourinary system. EENT: Reports decreased hearing since 1 wk ago. Derm: Skin is pink, warm \T\ dry. Vital Signs: 10:21 BP 147 / 78; Pulse 61; Resp 16; Temp 98.1; Pulse Ox 100% ; Weight 74.39 kg; Height 6 hb ft. 0 in. ; Pain /; 10:52 BP 114 / 84; Pulse 74; Resp 18; Pulse Ox 100% on R/A; mb9 10:21 Body Mass Index 22.24 (74.39 kg, 182.88 cm) hb 10:21 Pain Scale: Adult hb ED Course: 10:01 Patient arrived in ED. mr 10:01 Sherrie Cam MD is Attending Physician. sp3 10:01 David Cam DO is Private Physician. mr 10:22 Triage completed. hb 10:23 Shira Berg, RN is Primary Nurse. mb9 10:23 Arm band placed on. mb9 10:24 Bed in low position. Call light in reach. Side rails up X 1. Client placed on mb9 continuous cardiac and pulse oximetry monitoring. NIBP monitoring applied. 10:24 No provider procedures requiring assistance completed. mb9 10:52 Patient did not have IV access during this emergency room visit. mb9 Administered Medications: No medications were administered Medication: 10:24 VIS not applicable for this client. mb9 Outcome: 10:35 Discharge ordered by . sp3 10:52 Discharged to home ambulatory, mb9 10:52 Condition: stable 10:52 Discharge instructions given to patient, Instructed on discharge instructions, follow up and referral plans. Demonstrated understanding of instructions, follow-up care, medications, Prescriptions given X 1, 10:52 Patient left the ED. mb9 Signatures: Shira Larry, Reg Reg Heydi Toth, RN RN hb Sherrie Cam MD MD sp3 Shira Berg RN RN mb9
[2023-10-30 12:57] VITALS: BP 114/84; TEMP 98.1; O2SAT 100
== END ==
LOC: ER 09:57
DX: J32.9 Chronic sinusitis, unspecified (principal); Z88.0 Allergy status to penicillin; Z88.2 Allergy status to sulfonamides; Z91.041 Radiographic dye allergy status
CPT/HCPCS: 99283

== ENCOUNTER → 2023-11-03 | Emergency (ER) | payer OTHER ==
--- OUTSIDE RECORDS SUMMARY | 2023-11-03 10:02 | XMS REPORT | Continuity of Care Document ---
Author Name Unknown Address [address] [facility] [address] [place] [address] [facility] thconnect Address [address] [facility] [address] [place] [address] Care Team Providers Care Stator Tester Name Role Phone David Cam Attending Clinician Unavailable Enedina Burnett Attending Clinician Unavailable Macie Aceves Attending Clinician Unavailable Vinh Wick Attending Clinician Unavaildianna e Vinh Wick Admitting Clinician Unavailabl e Payers Payer Name Policy Type Policy Number Effective Date Expirati on Date Source [facility] Dual Complete Choice ([facility] PPO D-SNP) [id number] 2021 00:00:00 [facility] Problems Condition Name Condition Details Condition Category Status Onset Date Resolution Date Last Treatment Date Treating Clinician Comments Source [id number] History of nephrolith iasis Problem [facility] [id number] Right lower quadrant pain Problem [facility] [id number] Crystallur ia Problem [facility] [id number] Presence of cardiac pacemaker Problem [facility] [id number] Mixed hyperlipid emia Problem [facility] [id number] Right flank pain Problem [facility] [id number] 101 Benign prostatic hyperplasi a with lower urinary tract symptoms Problem [facility] [id number] Pneumococc al vaccine administer ed Problem [facility] Hemorrhoid s without complicati on Hemorrhoid s without complicati on Problem [facility] Malignant melanoma of trunk Malignant melanoma of torso excluding breast Problem [facility] 43406529 Acute pain of right shoulder Problem [facility] [id number] Carpal tunnel syndrome of right wrist Problem [facility] Gastroesop hageal reflux disease GERD (gastroeso phageal reflux disease) Problem [facility] Bradycardi a Bradycardi a Problem [facility] Benign prostatic hypertroph y without outflow obstructio n Benign hypertroph y of prostate Problem [facility] Seasonal allergic rhinitis Allergic rhinitis, seasonal Problem [facility] [id number] Other chronic pain Problem [facility] Diverticul osis of colon Diverticul osis of colon Problem [facility] [id number] Lateral epicondyli tis, right elbow Problem [facility] [id number] Diverticul osis of large intestine without hemorrhage Problem [facility] [id number] Right wrist pain Problem [facility] 19118024 Right elbow pain Problem [facility] [id number] Impingemen t syndrome of right shoulder Problem [facility] Kidney stone Kidney stone Problem [facility] Hypertensi on Hypertensi on Problem [facility] [id number] Difficulty sleeping Problem [facility] 667863668 Adult general medical exam Problem [facility] 402747086 History of colon polyps Problem [facility] [id number] BPH loc w urin obs/LUTS Problem [facility] [id number] Diverticul osis Problem [facility] [id number] +5th digit eff 07/19/20*GE RD with esophagiti s Problem [facility] [id number] Gastroesop hageal reflux disease without esophagiti s Problem [facility] Allergies, Adverse Reactions, Alerts Allergy Name Allergy Type Status Severity Reaction(s) Onset Date Inactive Date Treating Clinician Comments Source Sulfa (Sulfona mide Antibiot ics) DA Active U UNKNOWN 02-23 00:00: 00 [facility] iodine DA Active U UNKNOWN 02-23 00:00: 00 [facility] Penicill ins DA Active U 02-23 00:00: 00 [facility] Sulfa (Sulfona mide Antibiot ics) DA Active U 02-23 00:00: 00 [facility] iodine DA Active U 02-23 00:00: 00 [facility] Penicill ins DA Active U SHOCK 02-23 00:00: 00 [facility] 463 Drug allergy Active Unknown [facility] Social History Social Habit Start Date Stop Date Quantity Comments Source History of Tobacco Use [facility] Sex Assigned At [facility] Smoking Status Start Date Stop Date Source Never Smoker [facility] Medications Ordered Medication Name Filled Medication Name Start Date Stop Date Current Medication? Ordering Clinician Indication Dosage Frequency Signature (SIG) Comments Components Source Flomax 0.4 MG Flomax 0.4 MG 2021-10 0- 00:00: 00 08-09 00:00 :00 No 1{capsu le} QD Flomax 0.4 MG Tamsulosin HCl Tamsulosin HCl 03-08 00:00: 00 09-03 00:00 :00 No Na Aceves 1 capsule [facility] Omeprazole Omeprazole 11-01 00:00: 00 Yes Na Aceves 1 capsule [facility] Omeprazole 40 MG Omeprazole 40 MG 11-01 [...] 1{capsu le} QD Omeprazole 40 MG Bupivicaine Dalton Bupivicaine Dalton 2017-10 00:00: 00 No 2.5mg [facility] Depo Medrol (40mg) Depo Medrol (40mg) 2017-10 00:00: 00 No 40mg [facility] Bupivicaine Dalton Bupivicaine Dalton 2017-10 00:00: 00 No 2.5mg [facility] Depo Medrol (40mg) Depo Medrol (40mg) 2017-10 00:00: 00 No 40mg [facility] Bupivicaine Dalton Bupivicaine Dalton 2017-10 00:00: 00 No 2.5mg [facility] Depo Medrol (40mg) Depo Medrol (40mg) 2017-10 00:00: 00 No 40mg [facility] Bupivicaine Dalton Bupivicaine Dalton 2017-10 00:00: 00 No 2.5mg [facility] Depo Medrol (40mg) Depo Medrol (40mg) 2017-10 00:00: 00 No 40mg [facility] Bupivicaine Dalton Bupivicaine Dalton 2017-10 00:00: 00 No 2.5mg [facility] Depo Medrol (40mg) Depo Medrol (40mg) 2017-10 00:00: 00 No 40mg [facility] Bupivicaine Dalton Bupivicaine Dalton 2017-10 00:00: 00 No 2.5mg [facility] Depo Medrol (40mg) Depo Medrol (40mg) 2017-10 00:00: 00 No 40mg [facility] Bupivicaine Dalton Bupivicaine Dalton 2017-10 00:00: 00 No 2.5mg [facility] Depo Medrol (40mg) Depo Medrol (40mg) 2017-10 00:00: 00 No 40mg [facility] Bupivicaine Dalton Bupivicaine Dalton 2017-10 00:00: 00 No 2.5mg [facility] Depo Medrol (40mg) Depo Medrol (40mg) 2017-10 00:00: 00 No 40mg [facility] Bupivicaine Dalton Bupivicaine Dalton 2017-10 00:00: 00 No 2.5mg [facility] Depo Medrol (40mg) Depo Medrol (40mg) 2017-10 00:00: 00 No 40mg [facility] Bupivicaine Dalton Bupivicaine Dalton 2017-10 00:00: 00 No 2.5mg [facility] Depo Medrol (40mg) Depo Medrol (40mg) 2017-10 00:00: 00 No 40mg [facility] Bupivicaine Dalton Bupivicaine Dalton 2017-10 00:00: 00 No 2.5mg [facility] Depo Medrol (40mg) Depo Medrol (40mg) 2017-10 00:00: 00 No 40mg [facility] Betamethaso ne Sodium Phosphate Betamethaso ne Sodium Phosphate 2017-10 00:00: 00 No 30mg [facility] LIDOCAINE HCL 10MG/ML LIDOCAINE HCL 10MG/ML 2017-10 00:00: 00 No 10mg [facility] Betamethaso ne Sodium Phosphate Betamethaso ne Sodium Phosphate 2017-10 00:00: 00 No 30mg [facility] LIDOCAINE HCL 10MG/ML LIDOCAINE HCL 10MG/ML 2017-10 00:00: 00 No 10mg [facility] Betamethaso ne Sodium Phosphate Betamethaso ne Sodium Phosphate 2017-10 00:00: 00 No 30mg [facility] LIDOCAINE HCL 10MG/ML LIDOCAINE HCL 10MG/ML 2017-10 00:00: 00 No 10mg [facility] Betamethaso ne Sodium Phosphate Betamethaso ne Sodium Phosphate 2017-10 00:00: 00 No 30mg [facility] LIDOCAINE HCL 10MG/ML LIDOCAINE HCL 10MG/ML 2017-10 00:00: 00 No 10mg [facility] Betamethaso ne Sodium Phosphate Betamethaso ne Sodium Phosphate 2017-10 00:00: 00 No 30mg [facility] LIDOCAINE HCL 10MG/ML LIDOCAINE HCL 10MG/ML 2017-10 00:00: 00 No 10mg [facility] Betamethaso ne Sodium Phosphate Betamethaso ne Sodium Phosphate 2017-10 00:00: 00 No 30mg [facility] LIDOCAINE HCL 10MG/ML LIDOCAINE HCL 10MG/ML 2017-10 00:00: 00 No 10mg [facility] Betamethaso ne Sodium Phosphate Betamethaso ne Sodium Phosphate 2017-10 00:00: 00 No 30mg [facility] LIDOCAINE HCL 10MG/ML LIDOCAINE HCL 10MG/ML 2017-10 00:00: 00 No 10mg [facility] Betamethaso ne Sodium Phosphate Betamethaso ne Sodium Phosphate 2017-10 00:00: 00 No 30mg [facility] LIDOCAINE HCL 10MG/ML LIDOCAINE HCL 10MG/ML 2017-10 00:00: 00 No 10mg [facility] Betamethaso ne Sodium Phosphate Betamethaso ne Sodium Phosphate 2017-10 00:00: 00 No 30mg [facility] LIDOCAINE HCL 10MG/ML LIDOCAINE HCL 10MG/ML 2017-10 00:00: 00 No 10mg [facility] Betamethaso ne Sodium Phosphate Betamethaso ne Sodium Phosphate 2017-10 00:00: 00 No 30mg [facility] LIDOCAINE HCL 10MG/ML LIDOCAINE HCL 10MG/ML 2017-10 00:00: 00 No 10mg [facility] Betamethaso ne Sodium Phosphate Betamethaso ne Sodium Phosphate 2017-10 00:00: 00 No 30mg [facility] LIDOCAINE HCL 10MG/ML LIDOCAINE HCL 10MG/ML 2017-10 00:00: 00 No 10mg [facility] Metoprolol Tartrate Metoprolol Tartrate Yes Na Aceves 1 tablet with food [facility] Metoprolol Succinate ER Metoprolol Succinate ER Yes Na Aceves 1 tablet [facility] Tamsulosin HCl 0.4 MG Tamsulosin HCl 0.4 [...] HIGH DOSE OVER 65 2021-09-05 09:51:00 Completed [facility] FLUZONE HIGH DOSE OVER 65 FLUZONE HIGH DOSE OVER 65 2021-09-05 09:51:00 Completed [facility] FLUZONE HIGH DOSE OVER 65 FLUZONE HIGH DOSE OVER 65 2021-09-05 09:51:00 Completed [facility] FLUZONE HIGH DOSE OVER 65 FLUZONE HIGH DOSE OVER 65 2021-09-05 09:51:00 Completed [facility] FLUZONE HIGH DOSE OVER 65 FLUZONE HIGH DOSE OVER 65 2021-09-05 09:51:00 Completed [facility] FLUZONE HIGH DOSE OVER 65 FLUZONE HIGH DOSE OVER 65 2021-09-05 09:51:00 Completed [facility] FluAD FluAD 2019-08-02 10:58:00 Completed [facility] FluAD FluAD 2019-08-02 10:58:00 Completed [facility] FluAD FluAD 2019-08-02 10:58:00 Completed [facility] FluAD FluAD 2019-08-02 10:58:00 Completed [facility] FluAD FluAD 2019-08-02 10:58:00 Completed [facility] FluAD FluAD 2019-08-02 10:58:00 Completed [facility] FluAD FluAD 2019-08-02 10:58:00 Completed [facility] FluAD FluAD 2019-08-02 10:58:00 Completed [facility] FluAD FluAD 2019-08-02 00:00:00 Completed [facility] FluAD FluAD 2018-07-28 16:28:00 Completed [facility] FluAD FluAD 2018-07-28 16:28:00 Completed [facility] FluAD FluAD 2018-07-28 16:28:00 Completed [facility] FluAD FluAD 2018-07-28 16:28:00 Completed [facility] FluAD FluAD 2018-07-28 16:28:00 Completed [facility] FluAD FluAD 2018-07-28 16:28:00 Completed [facility] FluAD FluAD 2018-07-28 16:28:00 Completed [facility] FluAD FluAD 2018-07-28 16:28:00 Completed [facility] Prevnar 13 -Pneumonia Vaccine Prevnar 13 -Pneumonia Vaccine 2018-01-26 09:46:00 Completed [facility] Prevnar 13 -Pneumonia Vaccine Prevnar 13 -Pneumonia Vaccine 2018-01-26 09:46:00 Completed [facility] Prevnar 13 -Pneumonia Vaccine Prevnar 13 -Pneumonia Vaccine 2018-01-26 09:46:00 Completed [facility] Prevnar 13 -Pneumonia Vaccine Prevnar 13 -Pneumonia Vaccine 2018-01-26 09:46:00 Completed [facility] Prevnar 13 -Pneumonia Vaccine Prevnar 13 -Pneumonia Vaccine 2018-01-26 09:46:00 Completed [facility] Prevnar 13 -Pneumonia Vaccine Prevnar 13 -Pneumonia Vaccine 2018-01-26 09:46:00 Completed [facility] Prevnar 13 -Pneumonia Vaccine Prevnar 13 -Pneumonia Vaccine 2018-01-26 09:46:00 Completed [facility] Prevnar 13 -Pneumonia Vaccine Prevnar 13 -Pneumonia Vaccine 2018-01-26 09:46:00 Completed [facility] FluAD FluAD Unknown Completed [facility] FluAD FluAD Unknown Completed [facility] Prevnar 13 -Pneumonia Vaccine Prevnar 13 -Pneumonia Vaccine Unknown Completed [facility] FLUZONE HIGH DOSE OVER 65 FLUZONE HIGH DOSE OVER 65 Unknown Completed [facility] FluAD FluAD Unknown Completed [facility] FluAD FluAD Unknown Completed [facility] Prevnar 13 -Pneumonia Vaccine Prevnar 13 -Pneumonia Vaccine Unknown Completed [facility] FLUZONE HIGH DOSE OVER 65 FLUZONE HIGH DOSE OVER 65 Unknown Completed [facility] FluAD FluAD Unknown Completed [facility] FluAD FluAD Unknown Completed [facility] Prevnar 13 -Pneumonia Vaccine Prevnar 13 -Pneumonia Vaccine Unknown Completed [facility] FLUZONE HIGH DOSE OVER 65 FLUZONE HIGH DOSE OVER 65 Unknown Completed [facility] FluAD FluAD Unknown Completed [facility] FluAD FluAD Unknown Completed [facility] Prevnar 13 -Pneumonia Vaccine Prevnar 13 -Pneumonia Vaccine Unknown Completed [facility] FLUZONE HIGH DOSE OVER 65 FLUZONE HIGH DOSE OVER 65 Unknown Completed [facility] Fluad (aIIV4) - SDS - 0.5mL Fluad (aIIV4) - SDS - 0.5mL Unknown Completed [facility] FluAD FluAD Unknown Completed [facility] FluAD FluAD Unknown Completed [facility] Prevnar 13 -Pneumonia Vaccine Prevnar 13 -Pneumonia Vaccine Unknown Completed [facility] FLUZONE HIGH DOSE OVER 65 FLUZONE HIGH DOSE OVER 65 Unknown Completed [facility] Fluad (aIIV4) - SDS - 0.5mL Fluad (aIIV4) - SDS - 0.5mL Unknown Completed [facility] FluAD FluAD Unknown Completed [facility] FluAD FluAD Unknown Completed [facility] Prevnar 13 -Pneumonia Vaccine Prevnar 13 -Pneumonia Vaccine Unknown Completed [facility] FLUZONE HIGH DOSE OVER 65 FLUZONE HIGH DOSE OVER 65 Unknown Completed [facility] Fluad (aIIV4) - SDS - 0.5mL Fluad (aIIV4) - SDS - 0.5mL Unknown Completed [facility] FluAD FluAD Unknown Completed [facility] FluAD FluAD Unknown Completed [facility] Prevnar 13 -Pneumonia Vaccine Prevnar 13 -Pneumonia Vaccine Unknown Completed [facility] FLUZONE HIGH DOSE OVER 65 FLUZONE HIGH DOSE OVER 65 Unknown Completed [facility] Vital Signs Vital Name Observation Time Observation Value Comments Amita sarah height 2023-07-02 08:40:00 73.00 [in_i] Com [facility] weight 2023-07-02 08:40:00 174.6 [lb_av] Co [facility] temperature 2023-07-02 08:40:00 98.3 [degF] Com [facility] bmi 2023-07-02 08:40:00 23.03 kg/m2 Comm [facility] oximetry 2023-07-02 08:40:00 97 % [facility] respiratory rate 2023-07-02 08:40:00 18 /min [facility] blood pressure systolic 2023-07-02 08:40:00 123 mm[Hg] [facility] blood pressure diastolic 2023-07-02 08:40:00 72 mm[Hg] [facility] height 2023-07-02 09:00:00 73.00 [in_i] Com [facility] weight 2023-07-02 09:00:00 174.6 [lb_av] [facility] temperature 2023-07-02 09:00:00 98.3 [degF] Com [facility] bmi 2023-07-02 09:00:00 23.03 kg/m2 Comm on [facility] oximetry 2023-07-02 09:00:00 97 % [facility] respiratory rate 2023-07-02 09:00:00 18 /min [facility] blood pressure systolic 2023-07-02 09:00:00 123 mm[Hg] [facility] blood pressure diastolic 2023-07-02 09:00:00 72 mm[Hg] [facility] height 2023-03-30 11:00:00 73.00 [in_i] Com [facility] weight 2023-03-30 11:00:00 172.8 [lb_av] Co [facility] temperature 2023-03-30 11:00:00 98.0 [degF] Com [facility] bmi 2023-03-30 11:00:00 22.8 kg/m2 [facility] oximetry 2023-03-30 11:00:00 99 % [facility] respiratory rate 2023-03-30 11:00:00 18 /min [facility] blood pressure systolic 2023-03-30 11:00:00 115 mm[Hg] [facility] blood pressure diastolic 2023-03-30 11:00:00 69 mm[Hg] [facility] height 2023-02-19 11:15:00 73.00 [in_i] Com [facility] weight 2023-02-19 11:15:00 178.2 [lb_av] Co [facility] temperature 2023-02-19 11:15:00 98.2 [degF] Com [facility] bmi 2023-02-19 11:15:00 23.51 kg/m2 Comm [facility] oximetry 2023-02-19 11:15:00 98 % [facility] respiratory rate 2023-02-19 11:15:00 18 /min [facility] blood pressure systolic 2023-02-19 11:15:00 112 mm[Hg] [facility] blood pressure diastolic 2023-02-19 11:15:00 57 mm[Hg] [facility] height 2023-01-08 08:20:00 73.00 [in_i] Com [facility] weight 2023-01-08 08:20:00 181.8 [lb_av] [facility] temperature 2023-01-08 08:20:00 97.6 [degF] Com [facility] bmi 2023-01-08 08:20:00 23.98 kg/m2 [facility] oximetry 2023-01-08 08:20:00 97 % [facility] respiratory rate 2023-01-08 08:20:00 17 /min [facility] blood pressure systolic 2023-01-08 08:20:00 105 mm[Hg] [facility] blood pressure diastolic 2023-01-08 08:20:00 64 mm[Hg] [facility] height 2022-08-14 14:30:00 73.00 [in_i] Com [facility] weight 2022-08-14 14:30:00 181.2 [lb_av] Co [facility] temperature 2022-08-14 14:30:00 98.3 [degF] Com [facility] bmi 2022-08-14 14:30:00 23.9 kg/m2 [facility] oximetry 2022-08-14 14:30:00 97 % [facility] respiratory rate 2022-08-14 14:30:00 18 /min [facility] blood pressure systolic 2022-08-14 14:30:00 119 mm[Hg] [facility] blood pressure diastolic 2022-08-14 14:30:00 64 mm[Hg] [facility] height 2022-06-12 09:20:00 73.00 [in_i] Com [facility] weight 2022-06-12 09:20:00 179.2 [lb_av] Co [facility] temperature 2022-06-12 09:20:00 98.8 [degF] Com [facility] bmi 2022-06-12 09:20:00 23.64 kg/m2 Comm [facility] oximetry 2022-06-12 09:20:00 98 % [facility] respiratory rate 2022-06-12 09:20:00 17 /min [facility] blood pressure systolic 2022-06-12 09:20:00 103 mm[Hg] [facility] blood pressure diastolic 2022-06-12 09:20:00 68 mm[Hg] [facility] height 2022-06-12 09:20:00 73.00 [in_i] Com [facility] weight 2022-06-12 09:20:00 179.2 [lb_av] Co [facility] temperature 2022-06-12 09:20:00 98.8 [degF] Com [facility] bmi 2022-06-12 09:20:00 23.64 kg/m2 Comm [facility] oximetry 2022-06-12 09:20:00 98 % [facility] respiratory rate 2022-06-12 09:20:00 17 /min [facility] blood pressure systolic 2022-06-12 09:20:00 103 mm[Hg] [facility] blood pressure diastolic 2022-06-12 09:20:00 68 mm[Hg] [facility] height 2022-05-12 08:00:00 73.00 [in_i] Com [facility] weight 2022-05-12 08:00:00 183.4 [lb_av] Co [facility] temperature 2022-05-12 08:00:00 97.2 [degF] Com [facility] bmi 2022-05-12 08:00:00 24.19 kg/m2 Comm [facility] oximetry 2022-05-12 08:00:00 95 % [facility] respiratory rate 2022-05-12 08:00:00 15 /min [facility] blood pressure systolic 2022-05-12 08:00:00 123 mm[Hg] [facility] blood pressure diastolic 2022-05-12 08:00:00 72 mm[Hg] [facility] height 2021-11-12 14:20:00 73.00 [in_i] Com [facility] weight 2021-11-12 14:20:00 190.4 [lb_av] [facility] temperature 2021-11-12 14:20:00 97.4 [degF] Com [facility] bmi 2021-11-12 14:20:00 25.12 kg/m2 Comm [facility] oximetry 2021-11-12 14:20:00 99 % [facility] respiratory rate 2021-11-12 14:20:00 16 /min [facility] blood pressure systolic 2021-11-12 14:20:00 130 mm[Hg] [facility] blood pressure diastolic 2021-11-12 14:20:00 70 mm[Hg] [facility] Encounters Start Date/Time End Date/Time Encounter Type Admission Type Attending Clinicians Care Facility Care Department Encounter ID Source 2023-09-24 10:57:00 Outpatient Cam[facility]ossy jainh [facility] [id number] [facility] 2023-06-30 10:30:00 Outpatient TutuJossyh [facility] [id number] [facility] 2023 10:12:01 Outpatient Tutu David [facility] [id number] [facility] [facility] 2022-11-14 14:40:00 Outpatient Enedina Burnett [facility] [id number] [facility] 2022-06-11 11:53:00 Outpatient AcevesMacie landin [facility] [id number] [facility] 2022-05-12 08:02:00 Outpatient Macie Aceves [facility] [id number] [facility] 2022-05-01 15:44:01 Outpatient Macie Aceves STL[facility] STL[facility]C [id number] [facility] 2021-11-13 14:40:11 Outpatient AcevesMacie landin STLMLC STLMLC [id number] [facility] 2021-11-13 14:38:55 Outpatient Macie Aceves ST[facility] ST[facility] [id number] [facility] 2021-11-13 14:24:23 Outpatient Macie Aceves STLML[facility] STL[facility]C [id number] [facility] 2021-11-13 12:13:36 Outpatient Macie Aceves [facility] [id number] [facility] 2021-11-13 11:24:47 Outpatient Macie Aceves [facility] [id number] [facility] 2021-11-13 11:17:17 Outpatient Macie Aceves [facility] ST[facility] [id number] [facility] 2023-07-02 00:00:00 2023-07-02 00:00:00 OFFICE VISIT ESTAB PT LEVEL 4 [facility]C STL[facility]C [id number] [facility] 2023-07-02 00:00:00 2023-07-02 00:00:00 SUB ANNUAL [facility] WELLNESS VISIT STLMLC STLMLC [id number] [facility] 2023-05-19 00:00:00 2023-05-19 00:00:00 (TEL) STLMLC STLMLC [id number] [facility] 2023-03-30 00:00:00 2023-03-30 00:00:00 OFFICE VISIT ESTAB PT LEVEL 4 STLMLC STLMLC [id number] [facility] 2023-02-19 00:00:00 2023-02-19 00:00:00 OFFICE VISIT ESTAB PT LEVEL 4 [facility]MLC STL[facility]C [id number] [facility] 2023-01-08 00:00:00 2023-01-08 00:00:00 OFFICE VISIT ESTAB PT LEVEL 3 [facility]C STL[facility]C [id number] [facility] 2022-12-11 00:00:00 2022-12-11 00:00:00 OFFICE VISIT ESTAB PT LEVEL 3 [facility]C STLMLC [id number] [facility] 2022-08-14 00:00:00 2022-08-14 00:00:00 OFFICE VISIT NEW PT LEVEL 3 [facility]C ST[facility]MLC [id number] [facility] 2022-06-12 00:00:00 2022-06-12 00:00:00 SUB ANNUAL [facility] WELLNESS VISIT STLMLC STLMLC [id number] [facility] 2022-06-12 00:00:00 2022-06-12 00:00:00 NO CHARGE STLMLC STLMLC [id number] [facility] 2022-05-12 00:00:00 2022-05-12 00:00:00 OFFICE VISIT EST PT LEVEL 3 [facility]LMLC STLMLC [id number] [facility] 2021-11-12 00:00:00 2021-11-12 00:00:00 OFFICE VISIT EST PT LEVEL 3 [facility]C STL[facility]C [id number] [facility] 2021-09-05 00:00:00 2021-09-05 00:00:00 OFFICE VISIT EST PT LEVEL 3 [facility]C STL[facility]C [id number] [facility] 2021-09-03 00:00:00 2021-09-03 00:00:00 (TEL) STLMLC STLMLC [id number] [facility] 2021-08-29 00:00:00 2021-08-29 00:00:00 (TEL) STLMLC STLMLC [id number] [facility] 2021-04-07 00:00:00 2021-04-07 00:00:00 Outpatient [facility] [id number] [facility] 2021-04-04 00:00:00 2021-04-04 00:00:00 Outpatient [facility] [id number] [facility] 2021-04-04 00:00:00 2021-04-04 00:00:00 Outpatient [facility] [id number] [facility] 2020-10-04 00:00:00 2020-10-04 00:00:00 Outpatient [facility] [id number] [facility] 2020-10-04 00:00:00 2020-10-04 00:00:00 Outpatient [facility]MLC [facility] [id number] [facility] 2020-03-26 10:40:00 2020-03-26 10:40:[address] [facility] [id number] [facility] 2020-03-08 10:00:00 2020-03-08 10:00:00 [facility] [id number] [facility] 2020-01-26 09:30:00 2020-01-26 09:30:00 [facility] [id number] [facility] 2019-12-01 08:15:00 2019-12-01 08:15:00 [facility] [id number] [facility] 2019-11-01 11:20:00 2019-11-01 11:20:00 [facility] [id number] [facility] 2019-10-07 15:00:00 2019-10-07 15:00:00 Outpatient Vinh Light [facility] SUGL [id number] [facility] 2019-09-20 10:07:00 2019-09-20 10:07:[address] [facility] [id number] [facility] 2019-09-19 08:00:00 2019-09-19 08:00:[address] [facility] [id number] [facility] 2019-09-13 08:05:00 2019-09-13 08:05:[address] [facility] [id number] [facility] 2019-09-02 14:48:00 2019-09-02 14:48:00 [facility] [id number] [facility] 2019-08-02 09:00:00 2019-08-02 09:00:[address] [facility] [id number] [facility] 2019-07-20 11:00:00 2019-07-20 11:00:00 [facility] [id number] [facility] 2019-06-02 16:21:00 2019-06-02 16:21:[address] [facility] [id number] [facility] 2019-06-02 13:15:00 2019-06-02 13:15:00 [facility] [id number] [facility] 2019-03-03 13:45:00 2019-03-03 13:45:00 [facility] [id number] [facility] 2019-01-28 14:30:00 2019-01-28 14:30:00 [facility] [id number] [facility] 2019-01-27 10:00:00 2019-01-27 10:00:00 [facility] [id number] [facility] 2018-11-11 08:30:00 2018-11-11 08:30:00 [facility] [id number] [facility] 2018-10-04 08:00:00 2018-10-04 08:00:00 [facility] [id number] [facility] Results Test Description Test Time Test Comments Results Result Co mments Source HEMOGLOBIN [id number] 00:00:00* Test Item Value Reference Range Interpretation Comme nts HEMOGLOBIN A1c (test code = 4548-4) 5.5 % See_Comment [Automated [employer]] The system which generated this result transmitted reference range: 4.2-5.6 %. The reference range was not used to interpret this result as normal/abnormal. TSH REFLEX TO FREE [id number] 00:00:00* Test Item Value Reference Range Interpretation Comme nts TSH REFLEX TO FREE T4 (test code = 66378-4) 1.090 UIU/ML See_Comment [Automated [employer]] The system which generated this result transmitted reference range: 0.400-4.100 UIU/ML. The reference range was not used to interpret this result as normal/abnormal. URINALYSIS (CULTURE IF INDICATED)2023-06-25 00:00:00* Test Item Value Reference Range Interpretation Comme nts APPEARANCE (test code = 5767-9) TURBID CLEAR A BACTERIA (test code = 46043-8) NONE SEEN NONE SEEN BILIRUBIN (test code = 5770-3) NEGATIVE NEGATIVE CASTS, HYALINE (test code = 56306-5) NONE SEEN NONE-TRACE COLOR (test code = 5778-6) DARK YELLOW YELLOW-STRAW A EPITHELIAL CELLS (test code = 00326-3) 0-5 /HPF See_Comment [Automated [employer]] The system which generated this result transmitted reference range: 0-5 /HPF. The reference range was not used to interpret this result as normal/abnormal. GLUCOSE (test code = 5792-7) NEGATIVE NEGATIVE KETONES (test code = 5797-6) NEGATIVE NEGATIVE LEUKOCYTE ESTERASE (test code = 5799-2) NEGATIVE NEGATIVE NITRITE (test code = 5802-4) NEGATIVE NEGATIVE OCCULT BLOOD (test code = 51858-4) NEGATIVE NEGATIVE pH (test code = 5803-2) 5.5 5.0-9.0 PROTEIN (test code = 57996-0) NEGATIVE NEGATIVE RED BLOOD CELLS (test code = 79573-2) 0-2 /HPF See_Comment [Automated [employer] ge] The system which generated this result transmitted reference range: 0-2 /HPF. The reference range was not used to interpret this result as normal/abnormal. SPECIFIC GRAVITY (test code = 5811-5) 1.022 1.005-1.035 UROBILINOGEN (test code = 79189-5) 0.2 MG/DL See_Comment [Automated [employer] ge] The system which generated this result transmitted reference range: <=2.0 MG/DL. The reference range was not used to interpret this result as normal/abnormal. WHITE BLOOD CELLS (test code = 75806-7) 0-5 /HPF See_Comment [Automated message] The system which generated this result transmitted reference range: 0-5 /HPF. The reference range was not used to interpret this result as normal/abnormal. LIPID PANEL WITH REFLEX DIRECT [id number] 00:00:00* Test Item Value Reference Range Interpretation Comme nts CALC LDL CHOL (test code = 33867-9) 113 MG/DL See_Comment H [Automated [employer] ge] The system which generated this result transmitted reference range: <100 MG/DL. The reference range was not used to interpret this result as normal/abnormal. CHOLESTEROL (test code = 2093-3) 207 MG/DL See_Comment H [Automated [employer] ge] The system which generated this result transmitted reference range: <200 MG/DL. The reference range was not used to interpret this result as normal/abnormal. HDL CHOLESTEROL (test code = 2085-9) 76 MG/DL See_Comment [Automated [employer]] The system which generated this result transmitted reference range: >39 MG/DL. The reference range was not used to interpret this result as normal/abnormal. RISK RATIO LDL/HDL (test code = 58911-5) 1.49 RATIO See_Comment [Automated message] The system [...] interpret this result as normal/abnormal. COMPREHENSIVE METABOLIC [id number] 00:00:00* Test Item Value Reference Range Interpretation [...] code = 3094-0) 17 MG/DL See_Comment [Automated [employer] ge] The system which generated this result transmitted reference range: 8-23 MG/DL. The reference range was not used to interpret this result as normal/abnormal. CALCIUM (test code = 58359-2) 9.4 MG/DL See_Comment [Automated messa ge] The system which generated this result transmitted reference range: 8.5-10.5 MG/DL. The reference range was not used to interpret this result as normal/abnormal. CALC A/G RATIO (test code = 1759-0) 2.0 RATIO See_Comment [Automated [employer] ge] The system which generated this result [...] as normal/abnormal. CALC GLOBULIN (test code = 06901-5) 2.2 G/DL See_Comment [Automated messa ge] The [...] normal/abnormal. eGFR (2020 CKD-EPI) (test code = 41424-4) 83 ML/MIN/1.73 See_Comment [Automated messa ge] The [...] code = 1920-8) 22 U/L See_Comment [Automated [employer]] The system which generated this result transmitted reference range: 9-50 U/L. The reference range was not used to interpret this result as normal/abnormal. ALT (test code = 1742-6) 21 U/L See_Comment [Automated [employer]] The system which generated this result transmitted reference range: 5-50 U/L. The reference range was not used to interpret this result as normal/abnormal. SODIUM (test code = 2951-2) 144 MEQ/L See_Comment [Automated [employer]] The system which generated this result transmitted reference range: 133-146 MEQ/L. The reference range was not used to interpret this result as normal/abnormal. - NM MYOCRD SPECT R/S [id number] 16:25:00Patient Name: ROSE MARIE ROPER Unit No: [id number] EXAMS: CPT CODE: [id number] NM MYOCRD SPECT R/S MULT 95075 INDICATION: Nonsustained ventricular tachycardia. The patient underwent [...] THE EJECTION FRACTION IS 57 %. at 9018 Reported and signed by: Vinh Wick M.D. CC: Vinh Wick Technologist: Felisha Paniagua RT(ME); Rox Segura RT(N) Transcrpt Date/Tm/Trnsp: 10/13/2019 (1437) Jannie Orig Print D/T: S: 10/13/2019 (0920) [facility] NAME: ROSE MARIE ROPER [id number] [facility] [address] PHYS: [place] [address] : 1945 AGE: 74 SEX: M : Z.ZNUC PHONE #: [phone] EXAM DATE: 10/03/2019 STATUS: DEP CLI FAX #: [phone] RADIOLOGY NO: PAGE 1 Signed Report Notes Date/Time Note Provider Source 2019-10-07 15:09:00 [id number] [address] PATIENT NAME: ROSE MARIE ROPER ADMIT DATE: ACCOUNT NO: [id number] ROOM NO: AGE: 74 REPORT TYPE: eSTRESS [...] at 1617 PATIENT NAME: ROSE MARIE ROPER .[id number] AVAvailable for patient [id number]:17:24 HCAWU
--- NOTE | 2023-11-03 10:30 | RAD REPORT ---
EXAM DESCRIPTION: CT - Head Brain Wo Cont - 11/03/2023 10:23 am CLINICAL HISTORY: hearing loss right ear Headache and drowsiness COMPARISON: <Comparisons> TECHNIQUE: All CT scans are performed using dose optimization technique as appropriate and may inclu de automated exposure control or mA/KV adjustment according to patient size. FINDINGS: No intracranial hemorrhage, hydrocephalus or extra-axial fluid collection.Mild generalized brain atrophy.No areas of brain edema or evidence of midline shift. Mild right mastoid effusion. Paranasal sinuses and mastoids otherwise clear. The calvarium is intact. IMPRESSION: No acute intracranial abnormality. Mild right mastoid effusion.
--- NOTE | 2023-11-03 10:44 | ER ---
Nurse's Notes [facility] Name: Ta Roper Age: 78 yrs Sex: Male : 1945 Arrival Date: 11/03/2023 Time: 09:58 Bed 9 Private MD: Diagnosis: Acute mastoiditis Presentation: 11/03 10:11 Chief complaint: Patient states: he is having continued decreased hearing in his right ap3 ear. patient states he has been having hearing issues and sinus drainage since October 19, 2023. Patient states he has been evaluated by his PCP, and previous ER visit for the same symptoms, however they are not improving. Coronavirus screen: At this time, the client does not indicate any symptoms associated with coronavirus-19. Ebola Screen: No symptoms or risks identified at this time. Initial Sepsis Screen: Does the patient meet any 2 criteria? No. Patient's initial sepsis screen is negative. Does the patient have a suspected source of infection? No. Patient's initial sepsis screen is negative. Risk Assessment: Do you want to hurt yourself or someone else? Patient reports no desire to harm self or others. Onset of symptoms was October 2023. 10:11 Method Of Arrival: Ambulatory ap3 10:11 Acuity: GRAHAM 4 ap3 Triage Assessment: 10:12 General: Appears in no apparent distress. Behavior is calm, cooperative, appropriate ap3 for age. Pain: Denies pain. EENT: Reports decreased hearing in right ear ringing in right ear. Neuro: Level of Consciousness is awake, alert, obeys commands, Oriented to person, place, time, situation. Cardiovascular: Patient's skin is warm and dry. Respiratory: Airway is patent Respiratory effort is even, unlabored, Respiratory pattern is regular, symmetrical. Historical: - Allergies: 10:06 Iodinated Contrast Media; iw 10:06 PENICILLINS; iw 10:06 Sulfa (Sulfonamide Antibiotics); iw - PMHx: 10:06 Kidney stones; iw - Immunization history:: Client reports receiving the 2nd dose of the Covid vaccine, Flu vaccine is up to date. - Social history:: Smoking status: Patient denies any tobacco usage or history of. - Family history:: not pertinent. - Hospitalizations: : No recent hospitalization is reported. Screenin:12 [facility] ED Fall Risk Assessment (Adult) History of falling in the last 3 months, ap3 including since admission No falls in past 3 months (0 pts). Abuse screen: Denies threats or abuse. Nutritional screening: No deficits noted. Tuberculosis screening: No symptoms or risk factors identified. Vital Signs: 10:04 BP 138 / 69; Pulse 71; Resp 18; Temp 98.4(O); Pulse Ox 100% ; iw 10:13 Weight 73.48 kg; Height 6 ft. 0 in. ; ap3 10:13 Body Mass Index 21.97 (73.48 kg, 182.88 cm) ap3 ED Course: 10:01 Patient arrived in ED. mg5 10:02 Jamey Goff MD is Attending Physician. rn 10:06 Triage completed. iw 10:07 Arm band placed on left wrist. iw 10:13 Patient has correct armband on for positive identification. Bed in low position. Call ap3 light in reach. Side rails up X 1. Pulse ox on. NIBP on. 10:24 CT Head Brain wo Cont In Process Unspecified. EDMS 10:43 Danae Gibson MD is Referral Physician. rn 10:53 Yanna Manning RN is Primary Nurse. ap3 10:53 Provided Education on: discharge instructions. ap3 10:53 No provider procedures requiring assistance completed. Patient did not have IV access ap3 during this emergency room visit. Administered Medications: No medications were administered Medication: 10:13 VIS not applicable for this client. ap3 Outcome: 10:43 Discharge ordered by . rn 10:53 Discharged to home ambulatory, ap3 10:53 Condition: good 10:53 Discharge instructions given to patient, Instructed on discharge instructions, follow up and referral plans. medication usage, Demonstrated understanding of instructions, follow-up care, medications, Prescriptions given X 1, 10:53 Patient left the ED. ap3 Signatures: Dispatcher [employer] EDMS Maricruz Eddy RN RN iw Jamey Goff MD MD rn Prokisch, Amanda, RN RN 3 Malorie Alcala mg5 Corrections: (The following items were deleted from the chart) 10:11 10:04 Chief complaint: Patient states: he is having continued decreased hearing in his iw right ear. patient states he has been having hearing issues and sinus drainage since October 19, 2023. Patient states he has been evaluated by his PCP, and previous ER visit for the same symptoms, however they are not improving. 10: Coronavirus screen: At this time, the client does not indicate any symptoms iw associated with coronavirus-19. iw 10: Ebola Screen: No symptoms or risks identified at this time. iw 10:04 Initial Sepsis Screen: Does the patient meet any 2 criteria? No. Patient's iw initial sepsis screen is negative. Does the patient have a suspected source of infection? No. Patient's initial sepsis screen is negative. iw 10:04 Risk Assessment: Do you want to hurt yourself or someone else? Patient reports no iw desire to harm self or others. 10:04 Onset of symptoms was October 19, 2023 [facility] 10:04 Method Of Arrival: Ambulatory [facility] 10:04 Acuity: GRAHAM 4 iw 10:06 General: Appears in no apparent distress. Behavior is calm, cooperative, iw appropriate for age, iw 10:06 Pain: Denies pain. iw 10:06 Neuro: Level of Consciousness is awake, alert, obeys commands, Oriented to iw person, place, time, situation, iw 10:06 EENT: Reports decreased hearing in right ear ringing in right ear iw 10:06 Cardiovascular: Patient's skin is warm and dry. iw 10:06 Respiratory: Airway is patent Respiratory effort is even, unlabored, Respiratory iw pattern is regular, symmetrical, iw 10:07 Abuse screen: Denies threats or abuse. iw 10:07 Nutritional screening: No deficits noted. iw 10:07 Tuberculosis screening: No symptoms or risk factors identified. [facility] 10:07 [facility] ED Fall Risk Assessment (Adult) History of falling in the last 3 months, iw including since admission No falls in past 3 months (0 pts) iw
--- NOTE | 2023-11-03 10:44 | EDPHYS ---
Physician Documentation [facility] Name: Ta Roper Age: 78 yrs Sex: Male : 1945 Arrival Date: 11/03/2023 Time: 09:58 Bed 9 Private MD: ED Physician Jamey Goff HPI: 11/03 10:22 This 78 yrs old Male presents to ER via Ambulatory with complaints of Hearing rn Loss-Right Ear. 10:22 The patient presents with hearing loss, partial. The complaints affect the right ear. rn Onset: The symptoms/episode began/occurred 1 week(s) ago. Modifying factors: The symptoms are alleviated by nothing, the symptoms are aggravated by nothing. Severity of symptoms: At their worst the symptoms were moderate in the emergency department the symptoms are unchanged. The patient has not experienced similar symptoms in the past. The patient has been recently seen by a physician:. Patient reports treated recently for sinus infection. Given antibiotics and steroids. Now for a week has been having decreased hearing ability out of right ear. No trauma. No drainage. No fever. Feels like infection has improved and gone. Patient reports intermittent mild headaches that are resolved with aspirin. Has family history of brain tumor and 2 uncles. No other focal neurological deficits. Historical: - Allergies: 10:06 Iodinated Contrast Media; iw 10:06 PENICILLINS; iw 10:06 Sulfa (Sulfonamide Antibiotics); iw - PMHx: 10:06 Kidney stones; iw - Immunization history:: Client reports receiving the 2nd dose of the Covid vaccine, Flu vaccine is up to date. - Social history:: Smoking status: Patient denies any tobacco usage or history of. - Family history:: not pertinent. - Hospitalizations: : No recent hospitalization is reported. ROS: 10:22 Constitutional: Negative for fever, chills, and weight loss, ENT: Positive for rn decreased hearing right ear Neck: Negative for injury, pain, and swelling, Cardiovascular: Negative for chest pain, palpitations, and edema, Respiratory: Negative for shortness of breath, cough, wheezing, and pleuritic chest pain, Neuro: Negative for headache, weakness, numbness, tingling, and seizure, Exam: 10:22 Constitutional: This is a well developed, well nourished patient who is awake, alert, rn and in no acute distress. Head/Face: Normocephalic, atraumatic. ENT: Normal bilateral TM examination. No effusion. No perforation. No foreign body. No impaction. Neuro: Awake and alert, GCS 15, oriented to person, place, time, and situation. Cranial nerves II-XII grossly intact. Motor strength 5/5 in all extremities. Sensory grossly intact. Normal gait. Vital Signs: 10:04 BP 138 / 69; Pulse 71; Resp 18; Temp 98.4(O); Pulse Ox 100% ; iw 10:13 Weight 73.48 kg; Height 6 ft. 0 in. ; ap3 10:13 Body Mass Index 21.97 (73.48 kg, 182.88 cm) ap3 MDM: 10:02 Patient medically screened. rn 10:41 Differential diagnosis: otitis media, serotympanum, Mastoid effusion, mastoiditis, rn nerve inflammation. Data reviewed: vital signs, nurses notes, radiologic studies, CT scan, and as a result, I will discharge patient. Counseling: I had a detailed discussion with the patient and/or guardian regarding the historical points, exam findings, and any diagnostic results supporting the discharge/admit diagnosis, radiology results, the need for outpatient follow up, to return to the emergency department if symptoms worsen or persist or if there are any questions or concerns that arise at home. Special discussion: I discussed with the patient/guardian in detail that at this point there is no indication for admission to the hospital. It is understood, however, that if the symptoms persist or worsen the patient needs to return immediately for re-evaluation. ED course: CT head shows right mastoid effusion. Finished taking a course of steroids and Zithromax. Will discharge home with clindamycin due to penicillin allergy and ENT follow-up. 11/03 10:13 Order name: CT Head Brain wo Cont; Complete Time: 10:37 rn Administered Medications: No medications were administered Disposition Summary: 11/03/23 10:43 Discharge Ordered Notes: Location: Home rn Problem: new rn Symptoms: are unchanged rn Condition: Stable rn Diagnosis - Acute mastoiditis rn Followup: rn - With: Danae Gibson MD - When: As needed - Reason: Recheck today's complaints, Re-evaluation by your physician Discharge Instructions: - Discharge Summary Sheet rn Forms: - Medication Reconciliation Form rn - Thank You Letter rn - Antibiotic clothing pattern preparer - Prescription Opioid Use rn - Patient Portal Instructions rn - Leadership Thank You Letter rn Prescriptions: - Clindamycin HCl 300 mg Oral Capsule - take 1 capsule ORAL route every 6 hours for 10 days; 40 capsule; Refills: 0, rn Product Selection Permitted Signatures: Dispatcher [employer] Maricruz Shaffer RN Jamey Srivastava MD MD rn Prokisch, Amanda, RN RN ap3 Corrections: (The following items were deleted from the chart) 10:23 10:22 Patient reports treated recently for sinus infection. Given antibiotics and rn steroids. Now for a week has been having decreased hearing ability out of right ear. No trauma. No drainage. No fever. Feels like infection has improved and gone.. rn
[2023-11-03 11:57] VITALS: BP 138/69; TEMP 98.4; O2SAT 100
== END ==
LOC: ER 09:58
DX: H70.001 Acute mastoiditis without complications, right ear (principal); Z88.0 Allergy status to penicillin; Z88.2 Allergy status to sulfonamides; Z91.041 Radiographic dye allergy status
CPT/HCPCS: 70450; 99283